=== PATIENT | female | born 1950 | race Caucasian/White ===

== ENCOUNTER 2023-11-12 14:57 | Inpatient (IN) | payer OTHER ==
[2023-11-12 15:42] LABS: Absolute Lymphocytes (CBC) 1.2 K/uL (0.7-4.9); Hematocrit 39.3 % (36.0-45.0); Lymphocytes % 37.1 % (15.3-44.8); MCV 112.4 fL (80-100); MPV 8.2 fL (7.6-11.3); Platelets 185 thou/uL (152-406)
[2023-11-12 15:51] LABS: Barbiturates NEGATIVE (NEGATIVE); Benzodiazepines POSITIVE (NEGATIVE); Cocaine NEGATIVE (NEGATIVE); METHAMPHETAM NEGATIVE (NEGATIVE); Methadone NEGATIVE (NEGATIVE); Opiates NEGATIVE (NEGATIVE); Phencyclidine NEGATIVE (NEGATIVE); THC Cannibis NEGATIVE (NEGATIVE)
[2023-11-12 15:52] LABS: Urine Bacteria <20 /HPF (<20); Urine RBC <5 /HPF (None Seen)
[2023-11-12 15:53] LABS: Specific Gravity 1.008 (1.005-1.030); Urine Bilirubin NEGATIVE (Negative); Urine Blood Negative (Negative); Urine Clarity Clear (Clear); Urine Color Colorless (Yellow); Urine Glucose NEGATIVE (Negative); Urine Protein NEGATIVE (Negative); Urine Urobilinogen Normal (Normal)
[2023-11-12] MEDS ORDERED: ONDANSETRON 4 MG/2 ML VIAL ONE (15:54)
[2023-11-12] MEDS ORDERED: THIAMINE 200 MG/2 ML INJ ONE (15:54)
[2023-11-12] MEDS ORDERED: MULTIVITAMINS 10 ML VIAL (INJ) IV ONE ×2 (15:55→15:56)
[2023-11-12] MEDS ORDERED: NA CHLORIDE 0.9% 2,000 ML ONE (15:55)
[2023-11-12] MEDS ORDERED: FOLIC ACID 5 MG/ML VIAL ONE (15:57)
[2023-11-12 15:59] LABS: ALT/SGPT 35 U/L (13-56); Albumin 3.4 g/dL (3.4-5.0); Alkaline Phosphatase 64 U/L (45-117); BUN Blood Urea Nitrogen 11 mg/dL (7-18); Bicarbonate 22 mEq/L (21-32); Bilirubin Direct 0.1 mg/dL (0-0.2); Bilirubin Indirect, Calculated 0.3 mg/dL (0.2-0.8); Bilirubin Total 0.4 mg/dL (0.2-1.0); Glomerular Filtration Rate 73 ml/min (=/>90); Glucose Level 99 mg/dL (74-106); NT PRO-BNP 189 pg/mL (<125); Sodium Level 141 mEq/L (136-145)
[2023-11-12 16:01] LABS: AST/SGOT 48 U/L (15-37); Magnesium 2.1 mg/dL (1.6-2.4); Potassium 4.2 mEq/L (3.5-5.1)
--- NOTE | 2023-11-12 16:38 | RAD REPORT ---
EXAM DESCRIPTION: Serjio Single View11/12/2023 4:29 pm CLINICAL HISTORY: Cough COMPARISON: none FINDINGS: Mild right basilar opacities Left lung appears clear. Heart is normal size IMPRESSION: Mild right basilar opacity could represent atelectasis or pneumonia
[2023-11-12 17:19] LABS: Platelet Estimate ADEQ; White Blood Cell Scan OK (OK)
[2023-11-12 17:20] LABS: Blood Morphology Comment NOTED (NOT SEEN); Macrocytosis 2+
--- NOTE | 2023-11-12 17:50 | EDPHYS ---
Physician Documentation [facility] Name: Meghann Devine Age: 73 yrs Sex: Female : 1950 Arrival Date: 11/12/2023 Time: 14:57 Bed 4 Private MD: ED Physician Tahir Machado HPI: 11/12 15:40 This 73 yrs old Female presents to ER via EMS with complaints of Overdose. anh 15:40 The patient presents to the emergency department after a known overdose, that was anh intentional. Context: Method: the patient has a confirmed or suspected ingestion, of benzodiazepines, of narcotics, Time: the patient's OD/poisoning occurred at an unknown time, Extent: moderate ingestion, the OD/poisoning occurred at at a parking lot. Associated signs and symptoms: Pertinent positives: unresponsive. Severity of symptoms: At their worst the symptoms were moderate in the emergency department the symptoms are unchanged. It is unknown whether or not the patient has had similar symptoms in the past. Historical: - Allergies: 19:47 Morphine; tl4 - Home Meds: 19:47 None [Active]; tl4 - PMHx: 19:47 Hypertensive disorder; tl4 - PSHx: 19:47 Gastric sleeve; Hip replacement right; Hip replacement left; tl4 - Immunization history:: Adult Immunizations unknown. - Social history:: Smoking status: unknown. ROS: 15:42 Constitutional: Negative for fever, chills, and weight loss, anh 15:42 Unable to obtain ROS due to obtunded state, Exam: 15:42 Constitutional: This is a well developed, well nourished patient who is awake, alert, anh and in no acute distress. Head/Face: Normocephalic, atraumatic. Eyes: Pupils equal round and reactive to light, extra-ocular motions intact. Lids and lashes normal. Conjunctiva and sclera are non-icteric and not injected. Cornea within normal limits. Periorbital areas with no swelling, redness, or edema. ENT: Nares patent. No nasal discharge, no septal abnormalities noted. Tympanic membranes are normal and external auditory canals are clear. Oropharynx with no redness, swelling, or masses, exudates, or evidence of obstruction, uvula midline. Mucous membranes moist. 15:42 Chest/axilla: Inspection: normal, Palpation: is normal, no acute changes, Axilla: are normal, no acute changes, Breasts: are normal, Lymph nodes: lymphadenopathy is not appreciated, 15:42 ECG was reviewed by the Attending Physician. Vital Signs: 15:23 BP 164 / 97; Pulse 80; Resp 16; Temp 98.9; Pulse Ox 97% on R/A; Weight 74.84 kg; Height tl4 5 ft. 7 in. ; 15:30 BP 145 / 90; Pulse 73; Resp 17; Pulse Ox 96% on R/A; tl4 16:00 BP 165 / 91; Pulse 73; Resp 15; Pulse Ox 97% on R/A; tl4 16:30 BP 130 / 87; Pulse 76; Resp 16; Pulse Ox 97% on R/A; tl4 17:00 BP 123 / 78; Pulse 72; Resp 14; Pulse Ox 96% on R/A; tl4 17:30 BP 133 / 82; Pulse 72; Resp 17; Pulse Ox 97% on R/A; tl4 18:00 BP 148 / 95; Pulse 71; Resp 13; Pulse Ox 98% on R/A; tl4 18:30 BP 162 / 93; Pulse 71; Resp 16; Pulse Ox 100% on R/A; tl4 19:00 BP 169 / 98; Pulse 72; Resp 12; Pulse Ox 100% on R/A; tl4 19:30 BP 131 / 92; Pulse 68; Resp 12; Pulse Ox 95% on R/A; tl4 20:30 BP 137 / 92; Pulse 69; Resp 13 S; Pulse Ox 97% on R/A; lg3 21:00 BP 143 / 89; Pulse 71; Resp 13 S; Pulse Ox 97% on R/A; lg3 15:23 Body Mass Index 25.84 (74.84 kg, 170.18 cm) tl4 MDM: 15:04 Patient medically screened. anh 15:46 Differential diagnosis: Ingestion/exposure to benzos, narcos. Data reviewed: vital anh signs, nurses notes, lab test result(s), EKG, radiologic studies, plain films. Consideration of Admission/Observation Patient was admitted/placed on observation. Escalation of care including admission/observation considered. I considered the following discharge prescriptions or medication management in the emergency department Medications were administered in the Emergency Department. See MAR. Independent interpretation of the following test(s) in the Emergency Department EKG: See my EKG interpretation above. Test considered but Not performed: Ultrasound no abd usg. CT: no ct head. Historians other than the Patient: EMS: ems well informed. Care significantly affected by the following chronic conditions: unknown. Counseling: I had a detailed discussion with the patient and/or guardian regarding the historical points, exam findings, and any diagnostic results supporting the discharge/admit diagnosis, the presence of at least one elevated blood pressure reading (>120/80) during this emergency department visit, lab results, the need for further work-up and treatment in the hospital. 11/12 15:05 Order name: Basic Metabolic Panel; Complete Time: 16:33 [facility] 11/12 15:05 Order name: CBC with Diff; Complete Time: 17:47 [facility] 11/12 15:05 Order name: LFT's; Complete Time: 16:33 [facility] 11/12 15:05 Order name: Magnesium; Complete Time: 16:33 [facility] 11/12 15:05 Order name: NT PRO-BNP; Complete Time: 16:33 [facility] 11/12 15:05 Order name: PT-INR; Complete Time: 16:33 [facility] 11/12 15:05 Order name: Troponin HS; Complete Time: 16:33 [facility] 11/12 15:05 Order name: Acetaminophen; Complete Time: 16:33 [facility] 11/12 15:05 Order name: ETOH Level; Complete Time: 16:33 [facility] 11/12 15:05 Order name: Ptt, Activated; Complete Time: 16:33 [facility] 11/12 15:05 Order name: Salicylate; Complete Time: 16:33 [facility] 11/12 15:05 Order name: Urinalysis w/ reflexes; Complete Time: 16:33 [facility] 11/12 15:05 Order name: Urine Drug Screen; Complete Time: 16:33 [facility] 11/12 17:20 Order name: CBC Smear Scan; Complete Time: 17:47 EDMS 11/12 17:47 Order name: Blood Culture Adult (2) 11/12 17:47 Order name: Lactate w/ 2H reflex if indic.; Complete Time: 19:19 [facility] 11/12 17:58 Order name: Tylenol Level 11/12 15:05 Order name: XRAY Chest (1 view); Complete Time: 17:47 [facility] 11/12 19:20 Order name: INCENTIVE SPIROMETRY 11/12 15:05 Order name: EKG; Complete Time: 15:11/12 15:05 Order name: Cardiac monitoring; Complete Time: 15:11/12 15:05 Order name: EKG - Nurse/Tech; Complete Time: 15:11/12 15:05 Order name: IV Saline Lock; Complete Time: 15:11/12 15:05 Order name: Labs collected and sent; Complete Time: 15:11/12 15:05 Order name: O2 Per Protocol; Complete Time: 15:11/12 15:05 Order name: O2 Sat Monitoring; Complete Time: 15:11/12 15:05 Order name: Paris; Complete Time: 15:11/12 15:06 Order name: Misc. Order: hob at 40; Complete Time: :11/12 15:40 Order name: IV Saline Lock - Large Bore; Complete Time: 15:52 [facility] EC:42 Rate is 80 beats/min. Rhythm is regular. QRS [place] is Normal. MS interval is normal. QRS anh interval is normal. QT interval is normal. No Q waves. T waves are Normal. No ST changes noted. Clinical impression: Normal ECG and No evidence of ischemia. Interpreted by me. Reviewed by me. Administered Medications: 16:23 Drug: NS 0.9% IV 1000 ml IV at 1 bolus Per protocol; 1000 mL bolus Route: IV; Rate: 1 tl4 bolus; Site: left antecubital; Delivery: Primary tubing; 18:50 Follow up: Response: No adverse reaction; IV Status: Completed infusion; IV Intake: tl4 1000ml 16:23 Drug: Banana Bag - (Multivitamin IV 1 amp, NS 0.9% IV 1000 ml, Thiamine IV 100 mg, tl4 foLIC Acid IVPB 1 mg) IV at 125 ml/hr once {Note: using IV pump .} Route: IV; Rate: 125 ml/hr; Site: right antecubital; Delivery: Primary tubing; 21:22 Follow up: Response: No adverse reaction; IV Status: Infusion continued upon admission tl4 16:23 Drug: Ondansetron IVP 4 mg IVP once; over 2 minutes Route: IVP; Infused Over: 2 mins; tl4 Site: left antecubital; 19:34 Follow up: Response: No adverse reaction tl4 18:30 Drug: Piperacillin-Tazobactam IVPB 3.375 grams IVPB once over 60 mins; (mix in NS 100 tl4 mL) Route: IVPB; Infused Over: 60 mins; Site: left antecubital; Delivery: Dial-a-flow; 19:34 Follow up: Response: No adverse reaction; IV Status: Completed infusion; IV Intake: tl4 100ml Disposition Summary: 11/12/23 17:50 Hospitalization Ordered Notes: Hospitalization Status: Inpatient Admission anh Provider: Samson Young cha Location: Intensive Care Unit anh Condition: Fair anh Problem: new anh Symptoms: have improved anh Bed/Room Type: Standard [facility] Room Assignment: 3-(11/12/23 19:27) rv1 Diagnosis - Suicide attempt anh - Adverse effect of benzodiazepines anh - Poisoning by benzodiazepines, intentional self-harm anh - Alcohol abuse with intoxication anh - Altered mental status, unspecified anh - Pneumonia due to other specified bacteria - RIGHT LOWER LOBE anh Forms: - Medication Reconciliation Form anh - SBAR form anh - Leadership Thank You Letter anh Signatures: Dispatcher [employer] Tahir Vanessa MD MD cha Villegas, Rebecca rv1 Mario Ozuna RN RN tl4 Corrections: (The following items were deleted from the chart) 19: 17:50 anh rv1 19:52 15:31 Allergies: Unable to obtain; tl4 tl4 19:52 15:31 Home Meds: Unable to obtain; tl4 tl4 19:52 15:31 PMHx: Unable to Obtain; tl4 tl4
--- NOTE | 2023-11-12 17:50 | ER ---
Nurse's Notes [facility] Name: Meghann Devine Age: 73 yrs Sex: Female : 1950 Arrival Date: 11/12/2023 Time: 14:57 Bed 4 Private MD: Diagnosis: Suicide attempt;Adverse effect of benzodiazepines;Poisoning by benzodiazepines, intentional self-harm;Alcohol abuse with intoxication;Altered mental status, unspecified;Pneumonia due to other specified bacteria-RIGHT LOWER LOBE Presentation: 11/12 15:23 Chief complaint: EMS states: EMS reports pt took hydrocodone and alprazolam in attempt tl4 to harm herself. PD has been looking for patient since noon after receiving a call from pt family. Pt reportedly called family member to tell them she was suicidal and taking pills. PD located pt and summoned EMS. EMS arrived to find pt unresponsive except to deep painful stimuli. Pt is currently unresponsive. No other information regarding this event is available. Coronavirus screen: At this time, the client does not indicate any symptoms associated with coronavirus-19. Ebola Screen: No symptoms or risks identified at this time. Initial Sepsis Screen: Does the patient meet any 2 criteria? No. Patient's initial sepsis screen is negative. Does the patient have a suspected source of infection? No. Patient's initial sepsis screen is negative. Risk Assessment: Do you want to hurt yourself or someone else? Unable to obtain Other: Pt reportedly called family members telling them she was suicidal and attempting to end her life. Pt is currently unresponsive. Onset of symptoms was November 12, 2023 at 12:00. 15:23 Method Of Arrival: EMS: [facility] tl4 15:23 Acuity: NELI 2 tl4 Triage Assessment: 15:32 General: Appears unresponsive. Behavior is unresponsive. Pain: Unable to use pain tl4 scale. Patient is unresponsive. EENT: No deficits noted. Neuro: Level of Consciousness is unresponsive, Oriented to none Facial symmetry appears normal, Pupils are pinpoint. Cardiovascular: Capillary refill < 3 seconds JVD is absent Patient's skin is warm and dry. Rhythm is sinus rhythm. Respiratory: Airway is patent Trachea midline Respiratory effort is even, unlabored, Respiratory pattern is regular, Breath sounds are clear bilaterally. GI: No deficits noted. Abdomen is flat, Abd is soft X 4 quads. : No deficits noted. Paris in place Urine is clear. Derm: No deficits noted. Musculoskeletal: No deficits noted. Historical: - Allergies: 19:47 Morphine; tl4 - Home Meds: 19:47 None [Active]; tl4 - PMHx: 19:47 Hypertensive disorder; tl4 - PSHx: 19:47 Gastric sleeve; Hip replacement right; Hip replacement left; tl4 - Immunization history:: Adult Immunizations unknown. - Social history:: Smoking status: unknown. Screenin:22 [facility] ED Fall Risk Assessment (Adult) History of falling in the last 3 months, tl4 including since admission No falls in past 3 months (0 pts) Confusion or Disorientation Yes (5 pts) Intoxicated or Sedated Yes (3 pts) Impaired Gait No (0 pts) Mobility Assist Device Used No (0 pt) Altered Elimination Yes (1 pt) Score/Fall Risk Level 3 or more points = High Risk Oriented to surroundings, Maintained a safe environment, Educated pt \\T\\ family on fall prevention, incl call for assistance when getting out of bed, Assessed \\T\\ reinforced patient's understanding of fall precautions, Provided non-skid footwear, Hourly rounding (assess needs \\T\\ fall precautionary measures) done, Used ambulatory aids as needed (educated on \\T\\ assisted with), Used gait belt as appropriate. Abuse screen: Denies threats or abuse. Denies injuries from another. Nutritional screening: No deficits noted. Tuberculosis screening: No symptoms or risk factors identified. Assessment: 15:25 Reassessment: Pt presents with hydrocodone-apap 5-325 bottle prescribed to Juan Miguel Barnhart tl4 with 5 white pills IP 115. Farmapram bottle 2.0mg/90 tablets with 51 tablets. 16:08 Reassessment: No changes from previously documented assessment. Patient and/or family tl4 updated on plan of care and expected duration. Pain level reassessed. pt remains unresponsive. 16:51 Reassessment: No changes from previously documented assessment. Patient and/or family tl4 updated on plan of care and expected duration. Pain level reassessed. Pt remains unresponsive. Grandson and friend at bedside. 17:44 Reassessment: No changes from previously documented assessment. Patient and/or family tl4 updated on plan of care and expected duration. Pain level reassessed. Pt more responsive than previously. Pt is able to state her name, but not oriented to place, time, event. When asked if she has any medical complaints, pt answers with "I'm cold". 18:48 Reassessment: No changes from previously documented assessment. Patient and/or family tl4 updated on plan of care and expected duration. Pain level reassessed. Pt states "I'm cold", offers no other complaints. Pt given additional warm blanket. 19:36 Reassessment: No changes from previously documented assessment. Patient and/or family tl4 updated on plan of care and expected duration. Pain level reassessed. 19:37 Reassessment: Attempt to give report. RN in ICU states she is unable to take patient tl4 since she can only have 2 patients. 19:52 Reassessment: Spoke with daughter, Jen, updated her on pt status, answered questions. tl4 Daughter provided pt allergies, pmh, and meds. Vital Signs: 15:23 BP 164 / 97; Pulse 80; Resp 16; Temp 98.9; Pulse Ox 97% on R/A; Weight 74.84 kg; Height tl4 5 ft. 7 in. ; 15:30 BP 145 / 90; Pulse 73; Resp 17; Pulse Ox 96% on R/A; tl4 16:00 BP 165 / 91; Pulse 73; Resp 15; Pulse Ox 97% on R/A; tl4 16:30 BP 130 / 87; Pulse 76; Resp 16; Pulse Ox 97% on R/A; tl4 17:00 BP 123 / 78; Pulse 72; Resp 14; Pulse Ox 96% on R/A; tl4 17:30 BP 133 / 82; Pulse 72; Resp 17; Pulse Ox 97% on R/A; tl4 18:00 BP 148 / 95; Pulse 71; Resp 13; Pulse Ox 98% on R/A; tl4 18:30 BP 162 / 93; Pulse 71; Resp 16; Pulse Ox 100% on R/A; tl4 19:00 BP 169 / 98; Pulse 72; Resp 12; Pulse Ox 100% on R/A; tl4 19:30 BP 131 / 92; Pulse 68; Resp 12; Pulse Ox 95% on R/A; tl4 20:30 BP 137 / 92; Pulse 69; Resp 13 S; Pulse Ox 97% on R/A; lg3 21:00 BP 143 / 89; Pulse 71; Resp 13 S; Pulse Ox 97% on R/A; lg3 15:23 Body Mass Index 25.84 (74.84 kg, 170.18 cm) tl4 ED Course: 15:04 Patient arrived in ED. ds4 15:04 Tahir Machado MD is Attending Physician. anh 15:18 Mario Ozuna, KRAIG is Primary Nurse. tl4 15:19 Acetaminophen Sent. tl4 15:19 ETOH Level Sent. tl4 15:19 Ptt, Activated Sent. tl4 15:19 Basic Metabolic Panel Sent. tl4 15:19 CBC with Diff Sent. tl4 15:19 LFT's Sent. tl4 15:19 Magnesium Sent. tl4 15:19 NT PRO-BNP Sent. tl4 15:19 PT-INR Sent. tl4 15:19 Troponin HS Sent. tl4 15:21 [place] cath inserted, using sterile technique, 14 Fr., by ca, balloon inflated, to tl4 gravity drainage, urine specimen collected. 15:21 Maintain EMS IV. Dressing intact. Good blood return noted. Site clean \\T\\ dry. Gauge \\T\\ tl 4 site: 20g Right AC. 15:23 Urine Drug Screen Sent. tl4 15:23 Urinalysis w/ reflexes Sent. tl4 15:23 Salicylate Sent. tl4 15:31 Triage completed. tl4 15:31 Inserted saline lock: 18 gauge in left antecubital area, using aseptic technique. hb 15:34 Arm band placed on right wrist. EKG done per protocol. Performed by ED Staff. Shown to tl4 ED physician. Urine obtained. Labs ordered per protocol. Drawn by ED staff. 15:35 No provider procedures requiring assistance completed. tl4 15:36 Client placed on continuous cardiac and pulse oximetry monitoring. NIBP monitoring tl4 applied. monitor tech on. Door closed. Lights dimmed. Moved to private room. Warm blanket given. Head of bed 40 degrees. 16:31 XRAY Chest (1 view) In Process Unspecified. EDMS 17:22 Patient has correct armband on for positive identification. Placed in gown. Bed in low tl4 position. Call light in reach. Side rails up X2. Adult w/ patient. Provided Education on: ed process. 17:45 Warm blanket given. tl4 17:49 Samson Young MD is Hospitalizing Provider. anh 18:40 Blood Culture Adult (2) Sent. tl4 18:40 Tylenol Level Sent. tl4 18:40 Lactate w/ 2H reflex if indic. Sent. tl4 18:49 Warm blanket given. tl4 20:38 Patient admitted, IV remains in place. tl4 Administered Medications: 16:23 Drug: NS 0.9% IV 1000 ml IV at 1 bolus Per protocol; 1000 mL bolus Route: IV; Rate: 1 tl4 bolus; Site: left antecubital; Delivery: Primary tubing; 18:50 Follow up: Response: No adverse reaction; IV Status: Completed infusion; IV Intake: tl4 1000ml 16:23 Drug: Banana Bag - (Multivitamin IV 1 amp, NS 0.9% IV 1000 ml, Thiamine IV 100 mg, tl4 foLIC Acid IVPB 1 mg) IV at 125 ml/hr once {Note: using IV pump .} Route: IV; Rate: 125 ml/hr; Site: right antecubital; Delivery: Primary tubing; 21:22 Follow up: Response: No adverse reaction; IV Status: Infusion continued upon admission tl4 16:23 Drug: Ondansetron IVP 4 mg IVP once; over 2 minutes Route: IVP; Infused Over: 2 mins; tl4 Site: left antecubital; 19:34 Follow up: Response: No adverse reaction tl4 18:30 Drug: Piperacillin-Tazobactam IVPB 3.375 grams IVPB once over 60 mins; (mix in NS 100 tl4 mL) Route: IVPB; Infused Over: 60 mins; Site: left antecubital; Delivery: Dial-a-flow; 19:34 Follow up: Response: No adverse reaction; IV Status: Completed infusion; IV Intake: tl4 100ml Medication: 17:23 VIS not applicable for this client. tl4 Intake: 18:50 IV: 1000ml; Total: 1000ml. tl4 19:34 IV: 100ml; Total: 1100ml. tl4 Output: 16:00 Urine: 660ml (Paris); Total: 660ml. tl4 18:05 Urine: 460ml ([place]); Total: 1120ml. tl4 Outcome: 17:50 Decision to Hospitalize by Provider. anh 21:10 Admitted to ICU accompanied by nurse, via stretcher, room 4, on monitor, with chart, tl4 Report called to KRAIG Guerra 21:10 Condition: stable 21:10 Instructed on the need for admit, 21:16 Patient left the ED. lg3 Signatures: Dispatcher [employer] EDTahir Singletary MD MD cha Swanson, Donovan ds4 Gabrielle Guzmna, RN Kae Ramey RN RN lg3 Mario Ozuna RN RN tl4 Corrections: (The following items were deleted from the chart) 19: 15:31 Allergies: Unable to obtain; tl4 tl4 : 15:31 Home Meds: Unable to obtain; tl4 tl4 : 15:31 PMHx: Unable to Obtain; tl4 tl4
[2023-11-12] MEDS ORDERED: NA CHLORIDE 0.9% 100 ML ONE (18:06)
[2023-11-12] MEDS ORDERED: PIPERACIL/TAZO 3.375 GM VIAL IV ONE (18:06)
[2023-11-12] MEDS ORDERED: ONDANSETRON 4 MG/2 ML VIAL IV PRN (18:46)
[2023-11-12] MEDS ORDERED: SODIUM CHLORIDE 0.9% 10ML INJ IV PRN (18:50)
--- NOTE | 2023-11-12 18:52 | P.HP ---
Certification for Inpatient Patient admitted to: Inpatient With expected LOS: >2 Midnights Practitioner: I am a practitioner with admitting privileges, knowledge of patient current condition, hospital course, and medical plan of care. Services: Services provided to patient in accordance with Admission requirements found in Title 42 Section 412.3 of the Code of Federal Regulations Patient History Date of Service: 11/12/23 Reason for admission: Overdose / Suicidal Ideation History of Present Illness: 71-year-old female with unknown past medical history who was brought to the ER with possible suicidal attempt/overdose . At the time of interview patient is drowsy hence most of the history is obtained from chart review and also talking to the ER physician. Patient was found unresponsive in the parking lot after being telling family/friends that she took medications after having a fight with partner. Patient was brought to ER and has been drowsy and barely arousable. Maintaining airway. Patient was also found to be positive for alcohol and benzodiazepine. Apparently patient took Xanax does not know how many tablets. Patient was assessed in the ER and was admitted to the ICU for further management . Home medications list reviewed: No (Patient cannot provide) - Past Medical/Surgical History Past Medical History: Unable to obtain Past Surgical History: Unable to obtain - Family History Family History: Reviewed- Non-Contributory - Social History Smoking Status: Unknown if ever smoked Review of Systems is unable to be obtained Physical Examination - Vital Signs Temperature: 98.2 F Blood Pressure: 162/96 Pulse: 78 Respirations: 18 Pulse Ox (%): 96 - Physical Exam General: In no apparent distress, Unresponsive HEENT: Atraumatic, Normocephalic Neck: Supple Respiratory: Clear to auscultation bilaterally, Normal air movement Cardiovascular: Normal pulses, Regular rate/rhythm, Normal S1 S2, No rubs Capillary refill: <2 Seconds Gastrointestinal: Soft and benign, W/out hepatosplenomegaly, No ascites Musculoskeletal: No clubbing, No swelling Integumentary: No rashes Neurological: Other (Drowsy , mumbling words , states that she is cold ), Abnormal speech Lymphatics: No axilla or inguinal lymphadenopathy - Studies Laboratory Data (last 24 hrs) 11/12/23 11/12/23 11/12/23 15:16 15:16 15:16 WBC 3.20 L Hgb 13.5 Hct 39.3 Plt Count 185 PT 11.0 INR 1.00 APTT 24.5 Sodium 141 Potassium 4.2 BUN 11 Creatinine 0.85 Glucose 99 Magnesium 2.1 Total Bilirubin 0.4 AST 48 H ALT 35 Alkaline Phosphatase 64 Assessment and Plan - Problems (Diagnosis) (1) Acute metabolic encephalopathy Current Visit: Yes Status: Acute Plan: Patient is drowsy Monitor neuro vital signs Monitor closely in ICU Possibly toxic due to overdosage Will get a CT of the head if not better clinically in a.m. (2) Suicidal ideation Current Visit: Yes Status: Acute Plan: Patient had taken multiple medications including Xanax and alcohol Definitely need psych eval once more awake alert Patient will need inpatient psych transfer (3) Alcohol abuse Current Visit: Yes Status: Acute Plan: Alcohol level monitored Will get banana bag Thiamine Watch closely for withdrawals CIWA protocol (4) Benzodiazepine overdose Current Visit: Yes Status: Acute Plan: UDS positive for benzodiazepines Monitor closely under telemetry Maintaining airway at this time Continuous pulse oximetry Watch closely in ICU (5) Aspiration pneumonia Current Visit: Yes Status: Acute Plan: X-ray findings noted Right basilar possibly infiltrate Start on antibiotic Possibly due to aspiration Will get a repeat x-ray chest in a.m. Discharge Plan: Psychiatry Plan to discharge in: Greater than 2 days - Advance Directives Does patient have a Living Will: No Does patient have a Durable POA for Healthcare: No Time Spent Managing Pts Care (In Minutes): 54
[2023-11-12] MEDS: PANTOPRAZOLE 40 MG INJ IVP SCH (19:50)
[2023-11-12] MEDS ORDERED: PANTOPRAZOLE 40 MG INJ ONE (20:43)
[2023-11-12] MEDS ORDERED: NA CHLORIDE 0.9% 1,000 ML ONE (20:43)
[2023-11-12] MEDS: NA CHLORIDE 0.9% 1,000 ML IV SCH (21:21)
[2023-11-12 22:14] VITALS: BMI 25.9
[2023-11-13] MEDS ORDERED: AZITHROMYCIN 500 MG INJ IVPB ONE (08:47)
[2023-11-13] MEDS ORDERED: NA CHLORIDE 0.9% 250 ML ONE (08:47)
[2023-11-13] MEDS: CEFTRIAXONE 1,000 MG in NA CHLORIDE 0.9% 50 ML IVPB SCH (08:54)
[2023-11-13] MEDS: ENOXAPARIN 40 MG/0.4 ML SQ SCH (08:54)
[2023-11-13] MEDS: AZITHROMYCIN IV 500 MG in NA CHLORIDE 0.9% 250 ML IVPB SCH (08:54)
[2023-11-13] MEDS ORDERED: HYDRALAZINE HCL 20 MG/ML VIAL ONE (12:26)
[2023-11-13] MEDS: HYDRALAZINE HCL 20 MG/ML VIAL IV PRN (12:30)
--- NOTE | 2023-11-13 14:30 | EKG ---
Test Date: 2023-11-12 Test Time: 15:00:15 [employer]: ABIMAEL MEASUREMENT RESULTS: Intervals: Rate: 80 MA: 192 QRSD: 82 QT: 408 QTc: 470 [place]: P: 63 MA: 192 QRS: -5 T: 22 INTERPRETIVE STATEMENTS: Normal sinus rhythm Normal ECG No previous ECG available for comparison Electronically Signed On 11-13-23 14:26:31 DELIVERER MERCHANDISE by Emiliano Mckeon
--- NOTE | 2023-11-13 14:45 | P.PN ---
Subjective Date of Service: 11/13/23 Chief Complaint: Overdose / Suicidal Ideation Patient is awake and alert, she is sad but denies any further suicidal thoughts. She reports this is her first attempt. No prior history of suicide attempts. No prior anxiety and depression diagnosis. Patient denies anhedonia, denies guilt. Physical Examination - Vital Signs Temperature: 98.2 F Blood Pressure: 125/82 Pulse: 85 Respirations: 18 Pulse Ox (%): 98 - Studies Laboratory Data (last 24 hrs) 11/12/23 11/12/23 11/12/23 15:16 15:16 15:16 WBC 3.20 L Hgb 13.5 Hct 39.3 Plt Count 185 PT 11.0 INR 1.00 APTT 24.5 Sodium 141 Potassium 4.2 BUN 11 Creatinine 0.85 Glucose 99 Magnesium 2.1 Total Bilirubin 0.4 AST 48 H ALT 35 Alkaline Phosphatase 64 Assessment And Plan - Plan Physical examination General: Alert and oriented x3, NAD, HEENT: Conjunctiva not pale, anicteric sclera Neck: Supple, no elevated JVD Heart: Heart sounds 1 and 2 normal, regular rhythm, normal rate, no pedal edema Lungs: Clear to auscultation bilaterally, adequate breath sounds bilaterally, no rhonchi or crackles. Abdomen: Soft, nondistended, nontender, normal bowel sounds. Extremities: No tenderness, no deformity Skin: Normal skin turgor, no rash, no nodules or ulcers. Neuro: No focal motor deficit. Normal speech. Psychiatry:feels said, no agitation. Diagnosis Acute metabolic encephalopathy Suicidal ideation. Benzodiazepine overdose Alcohol intoxication AMS secondary to drug overdose and alcohol intoxication. AMS resolved. Continue supportive measures with IV hydration. Psychiatry consult IV thiamine and folic acid Patient denies any history of alcohol withdrawal. Aspiration pneumonia Empiric antibiotics for possible aspiration pneumonia. Patient is stable on room air. DVT prophylaxis: Lovenox
[2023-11-13] MEDS ORDERED: NA CHLORIDE 0.9% 1,000 ML ONE (16:22)
[2023-11-13] MEDS ORDERED: ACETAMINOPHEN 500 MG TAB ONE (21:06)
[2023-11-13] MEDS: ACETAMINOPHEN 500 MG TAB PO PRN (21:08)
[2023-11-14 05:10] LABS: Potassium 3.5 mEq/L (3.5-5.1)
[2023-11-14 05:16] LABS: Absolute Lymphocytes (CBC) 1.2 K/uL (0.7-4.9); Hematocrit 39.7 % (36.0-45.0); Lymphocytes % 33.7 % (15.3-44.8); Platelets 173 thou/uL (152-406); RBC Red Blood Cell Count 3.53 M/uL (3.86-4.86)
[2023-11-14 05:25] LABS: MCV 112.2 fL (80-100)
[2023-11-14 08:24] VITALS: O2SAT 98
[2023-11-14] MEDS: POTASSIUM 25 MEQ EFFERV TAB PO ONE (08:39)
[2023-11-14] MEDS: LOSARTAN POTASSIUM 50 MG TABLET PO SCH (08:39)
[2023-11-14] MEDS: hydroCHLOROthiazide 12.5 MG CAP PO SCH (08:39)
--- NOTE | 2023-11-14 08:49 | P.DS ---
Admission Date: 11/12/23 Discharge Date: 11/14/23 Disposition: ROUTINE DISCHARGE Discharge Condition: GOOD Reason for Admission: Overdose / Suicidal Ideation Consultations: Psychology - Dr. Rutherford Brief History of Present Illness: 71yo F, PMH: unknown past medical history who was brought to the ER with possible suicidal attempt/overdose . At the time of interview patient is drowsy hence most of the history is obtained from chart review and also talking to the ER physician. Patient was found unresponsive in the parking lot after being telling family/friends that she took medications after having a fight with partner. Patient was brought to ER and has been drowsy and barely arousable. Maintaining airway. Patient was also found to be positive for alcohol and benzodiazepine. Apparently patient took Xanax does not know how many tablets. Patient was assessed in the ER and was admitted to the ICU for further management Hospital Course: Problem List: Acute metabolic encephalopathy secondary to medication side effect Benzodiazepine overdose Alcohol intoxication Right basilar opacity, atelectasis vs aspiration pneumonia Patient presented to the ED after being found unresponsive and concer for possible possible suicidal attempt / medication overdose. Patient reportedly took multiple medications including an unknown amount of xanax, drank alcohol, and was found unresponsive by family. Tox screen was positive for benzos / serum alcohol 180. Patient was admitted into the ICU for close monitoring with [facility] protocol and had improvement. Psych was consulted and she was evaluated by Dr. Rutherford. She reported no suicidal ideation. She has had multiple stressors in her life and took medication and drank some wine to help her relax, inadvertently leading to this episode. She reports good family support. Dr. Rutherford recommended starting sertraline and trazodone, and to have close follow up with him in ~1 week. Chest x-ray on admission noted a mild right basilar opacity, concerning for atelectasis or possible mild aspiration pneumonia. Patient briefly received ~1 day of IV azithromycin / rocephin empirically while hospitalized and is to complete 5 day course of PO augmentin on discharge. During her hospitalization she was without fever or leukocytosis. She did not report any shortness of breath or cough. Continue home medications as previously prescribed. New Medications: Sertraline 25 mg at dinner Trazodone 25 mg at bedtime Augmentin twice daily x5 days Follow up: PCP within 3-[address] Rutherford in ~1 week Refrain from drinking alcohol Physical Exam: GEN: Alert, oriented, NAD HEENT: Normal conjunctiva, sclera anicteric CV: Regular rate and rhythm, no edema Pulm: Nonlabored respirations on room air, clear bilaterally ABD: Soft, nontender, nondistended Neuro: Normal speech, normal affect Vital Signs/Physical Exam: Temp Pulse Resp BP Pulse Ox 97.9 F 79 19 183/98 H 97 11/14/23 08:00 11/14/23 08:39 11/14/23 08:00 11/14/23 08:39 11/14/23 08:00 Laboratory Data at Discharge: WBC 3.50 thou/uL (4.3-10.9) L 11/14/23 04:36 Hgb 13.6 g/dL (12.0-15.0) 11/14/23 04:36 Hct 39.7 % (36.0-45.0) 11/14/23 04:36 Plt Count 173 thou/uL (152-406) 11/14/23 04:36 PT 11.0 SECONDS (9.5-12.5) 11/12/23 15:16 INR 1.00 11/12/23 15:16 APTT 24.5 SECONDS (24.3-36.9) 11/12/23 15:16 Sodium 139 mEq/L (136-145) 11/14/23 04:36 Potassium 3.5 mEq/L (3.5-5.1) 11/14/23 04:36 BUN 11 mg/dL (7-18) 11/14/23 04:36 Creatinine 0.85 mg/dL (0.55-1.02) 11/14/23 04:36 Glucose 92 mg/dL (74-106) 11/14/23 04:36 Magnesium 2.1 mg/dL (1.6-2.4) 11/12/23 15:16 Total Bilirubin 0.4 mg/dL (0.2-1.0) 11/12/23 15:16 AST 48 U/L (15-37) H 11/12/23 15:16 ALT 35 U/L (13-56) 11/12/23 15:16 Alkaline Phosphatase 64 U/L (45-117) 11/12/23 15:16 Home Medications: Amox/Clavulanate [Augmentin 875-125 Tab] 1 tab PO BID 5 Days #10 tab 11/14/23 Aspirin Chewable [Aspirin Chewable*] 81 mg PO DAILY 11/14/23 Atorvastatin Calcium [Lipitor] 40 mg PO DAILY 11/14/23 Losartan/Hydrochlorothiazide [Hyzaar 100-12.5 Tablet] 1 tab PO DAILY 11/14/23 Sertraline HCl 0.5 tab PO DAILY AT SUPPER 60 Days #30 tab 11/14/23 Trazodone HCl 0.5 tab PO BEDTIME 60 Days #30 tab 11/14/23 New Medications: Amox/Clavulanate [Augmentin 875-125 Tab] 1 tab PO BID 5 Days #10 tab Sertraline HCl 0.5 tab PO DAILY AT SUPPER 60 Days #30 tab Trazodone HCl 0.5 tab PO BEDTIME 60 Days #30 tab Physician Discharge Instructions: Patient presented to the ED after being found unresponsive and concern for possible possible suicidal attempt / medication overdose. Patient reportedly took multiple medications including an unknown amount of xanax, drank alcohol, and was found unresponsive by family. Tox screen was positive for benzos / serum alcohol 180. Patient was admitted into the ICU for close monitoring with [facility] protocol and had improvement. Psych was consulted and she was evaluated by Dr. Rutherford. She reported no suicidal ideation. She has had multiple stressors in her life and took medication and drank some wine to help her relax, inadvertently leading to this episode. She reports good family support. Dr. Rutherford recommended starting sertraline and trazodone, and to have close follow up with him in ~1 week. Chest x-ray on admission noted a mild right basilar opacity, concerning for atelectasis or possible mild aspiration pneumonia. Patient briefly received ~1 day of IV azithromycin / rocephin empirically while hospitalized and is to complete 5 day course of PO augmentin on discharge. During her hospitalization she was without fever or leukocytosis. She did not report any shortness of breath or cough. Continue home medications as previously prescribed. New Medications: Sertraline 25 mg at dinner Trazodone 25 mg at bedtime Augmentin twice daily x5 days Follow up: PCP within 3-[address] Rutherford in ~1 week Refrain from drinking alcohol Followup: Papo Rutherford [ACTIVE - CAN ADMIT] - 1 Week Magdalena Mckeon DO [Primary Care Provider] - Time spent managing pt's care (in minutes): 45
[2023-11-14 08:57] VITALS: TEMP 97.9
[2023-11-14 10:57] VITALS: BP 172/95
[2023-11-14] MEDS ORDERED: SERTRALINE HCL 50 MG TAB PO SCH (17:00)
[2023-11-14] MEDS ORDERED: TRAZODONE 50 MG TABLET PO SCH (21:00)
== END 2023-11-14 10:30 | disposition home or self-care (01) | DRG 917 ==
LOC: EDBD 14:57 → ER 14:57 → ERHOLD 18:46 → 3RD-ICU 19:59
PROVIDERS: ADMIT Family Medicine; ATTEND Hospitalist
DX: T42.4X2A Poisoning by benzodiazepines, intentional self-harm, initial encounter (principal); G93.41 Metabolic encephalopathy; J69.0 Pneumonitis due to inhalation of food and vomit; R45.851 Suicidal ideations; F10.129 Alcohol abuse with intoxication, unspecified; I10 Essential (primary) hypertension; Z88.5 Allergy status to narcotic agent; Z98.84 Bariatric surgery status; Z96.643 Presence of artificial hip joint, bilateral; Y90.6 Blood alcohol level of 120-199 mg/100 ml
CPT/HCPCS: 36415; 51702; 71045; 80048; 80076; 80143; 80179; 80307; 81001; 82077; 83605; 83735; 83880; 84484; 85025; 85610; 85730; 87040; 93005; 99285; C9113; J0360; J0696; J1650; J2405; J2543; J3411; J7030; J7050

== ENCOUNTER 2025-04-26 11:19 | Emergency (ER) | payer OTHER ==
--- OUTSIDE RECORDS SUMMARY | 2025-04-26 11:24 | XMS REPORT | Continuity of Care Document ---
Author Name Unknown Address [address] [facility] [place] [address] [facility] Address [address] 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 Phone Angelica Johnson MD, [facility] Primary Care Physici an Luciana Hernadez MD Attending Clinician [phone] NERIS MORELAND Attending Clinician Unavailable Jw WOLFF, [facility] Attending Clinician [phone] LUCIANA EDWARDS Attending Clinician Lucien Bae MD, [facility] Attending Clinician [phone] Lab, [facility] I Attending Clinician UnavailAlice Hickey Attending Clinician [phone] ALICE SIGALA Attending Clinician Unavailabl e Doctor Unassigned, [place] Attending Clinician U LEA Landeros LCSW Attending Clinician VAHE Mathur M.D. Attending Clinician Unavail able LUCIANA EDWARDS Admitting Clinician Lucien brantley Payers Payer Name Policy Type Policy Number Effective Date Expirati on Date Source MEDICARE PART A AND B [id number] 2016 00:00:00 MEDICARE PART A \T\ B [id number] 2016 00:00:00 CONTINENTAL BENEFITS [id number] 2018 00:00:00 Problems Condition Name Condition Details Condition Category Status Onset Date Resolution Date Last Treatment Date Treating Clinician Comments Source Displaced fracture of greater tuberosity of right humerus, initial encounter for closed fracture Displaced fracture of greater tuberosity of right humerus, initial encounter for closed fracture Disease Active 03-06 00:00: 00 [facility] Z47.1, T84.090A, T84.84XA, M25.551, 2713 Z47.1, T84.090A, T84.84XA, M25.551, 2713 Active 10/22/2019 [facility] [place][note 2] Diagnosis Active 2- 00:00: 00 2019-10-29 07:52:00 Memoria jason Vidal R06.02 - SHORTNESS OF BREATH R06.02 - SHORTNESS OF BREATH Active 10/09/2019 BLAKE Vidal Diagnosis Active 10-09 00:01: 00 2019-10-30 12:10:00 Memoria jason Vidal Z47.1,T84. 090A,T84.8 4XA,M25.55 1 Z47.1,T84. 090A,T84.8 4XA,M25.55 1 Active 07/10/2019 [facility] [place][note 2] Diagnosis Active 2018-09 0- 00:00: 00 2019-07-19 07:45:00 Memrosalind Vidal Closed left hip fracture, with routine healing, subsequent encounter Closed left hip fracture, with routine healing, subsequent encounter Disease Active 05-09 00:00: 00 [facility] FALL/INTOX ICATED FALL/INTOX ICATED Active 04/05/2017 [facility] Diagnosis Active 04-05 00:00: 00 2017-04-05 23:22:00 Memrosalind Vidal History of depression History of depression [facility] History of hyperlipid emia History of hyperlipid emia Problem Resolve d [facility] History of hypertensi on History of hypertensi on Problem Resolve d [facility] Depression Depression Problem Active [facility] Alcohol abuse Alcohol abuse Problem Active [facility] Major depressive disorder, recurrent episode, moderate with atypical features Major depressive disorder, recurrent episode, moderate with atypical features Problem Active [facility] Hyperlipid emia (disorder) Hyperlipid emia (disorder) Active Problem 10/31/2019 [facility] [place][note 2] Problem Active 2019-10-31 23:23:19 Saida Vidal Hypertensi ve disorder, systemic arterial (disorder) Hypertensi ve disorder, systemic arterial (disorder) Active Problem 10/31/2019 [facility] [place][note 2] Problem Active 2019-10-31 23:23:19 Saida Vidal 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 10/31/2019 right hip [facility] [place][note 2] Problem Active 2019-10-31 23:23:19 Saida Vidal ILLNESS, UNSPECIFIE D ILLNESS, UNSPECIFIE D Active [facility] [place][note 2] Diagnosis Active 2019-10-29 07:52:00 Saida Vidal Gallbladde r calculus (disorder) Gallbladde r calculus (disorder) Resolved Problem 10/31/2019 [facility] [place][note 2] Problem Resolve d 2019-10-31 23:23:19 Saida Vidal 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 Resolved Problem 10/31/2019 [facility] [place][note 2] Problem Resolve d 2019-10-31 23:23:19 Saida Vidal History of Past Illness Condition Name Condition Details Condition Category Status Onset Date Resolution Date Last Treatment Date Treating Clinician Comments Source Displaced fracture of greater trochanter of unspecifie d femur, initial encounter for closed fracture Displaced fracture of greater trochanter of unspecifie d femur, initial encounter for closed fracture 04/06/2017 04/09/2017 [facility] Problem - 05:00: 00 2017-04-09 05:11:59 2017-04-09 05:11:59 Saida Vidal Allergies, Adverse Reactions, Alerts Allergy Name Allergy Type Status Severity Reaction(s) Onset Date Inactive Date Treating Clinician Comments Source Lisinopr il Allergy to substanc e Active Cough 11-13 00:00: 00 [facility] ANTIHIST IMINE DRUG Active Other-Cmnt 01-31 00:00: 00 [facility] Antihist imine Propensi ty to adverse reaction s Active Other - See comments 2016-0 5-16 00:00: 00 Makes her sleep [facility] Family History Family Member Diagnosis Comments Start Date Stop Date Sourc e Unknown Family Member Family history of sudden Other [facility] Child Family history of Hi gh cholesterol [facility] Child Family history of hypertension [facility] Sibling Family history of Hi gh cholesterol [facility] Sibling Family history of bi rth defect [facility] Sibling Family history of Alcohol abuse [facility] Social History Social Habit Start Date Stop Date Quantity Comments Source Gender identity 2023-12-09 01:54:15 Identifies as female gender (finding) [facility] History of tobacco use Current smoker [facility] ASSERTION Possible [facility] Sexual orientation [facility] Alcoholic beverage intake 2025-04-14 00:00:00 2025-04-14 00:00:00 .29 /d [facility] Tobacco use and exposure 2024-04-11 00:00:00 2024-04-11 00:00:00 Smokeless tobacco non-user [facility] History of Social function 2024-03-07 00:00:00 2024-03-07 00:00:00 [facility] Sex 2023-12-09 01:54:15 2023-12-09 01:54:15 Female (finding) [facility] Social History 2019-07-16 15:37:56 2019-07-16 15:37:56 [facility] Alcohol intake 2017-06-12 00:00:00 2017-06-12 00:00:00 [facility] Sex assigned at 1950 00:00:00 1950 00:00:00 [facility] Smoking Status Start Date Stop Date [facility] Current some day smoker 2017-06-12 00:00:00 [facility] Social History [facility] Medications Ordered Medication Name Filled Medication Name Start Date Stop Date Current Medication? Ordering Clinician Indication Dosage Frequency Signature (SIG) Comments Components Source traMADol (Ultram) 50 MG tablet 03-06 00:00: 00 Yes [id number] 50mg Take 1 tablet (50 mg total) by mouth every 8 (eight) hours if needed for severe pain. [facility] apixaban (Eliquis) 5 MG tablet 2023-09 0-31 10:06: 47 Yes 5mg Q.5D Take 5 mg by mouth in the morning and 5 mg in the evening. [facility] sertraline (Zoloft) 50 MG tablet 04-11 11:32: 03 Yes 50mg QD Take 50 mg by mouth 1 (one) time each day. [facility] atorvastati n (Lipitor) 80 MG tablet 04-11 11:32: 03 Yes 80mg QD Take 80 mg by mouth 1 (one) time each day. [facility] losartan (Cozaar) 100 MG tablet 04-11 11:32: 03 Yes 100mg QD Take 100 mg by mouth 1 (one) time each day. [facility] carvedilol (Coreg) 6.25 MG tablet 03-09 00:00: 00 Yes 6.25mg Q.5D Take 6.25 mg by mouth every 12 (twelve) hours. [facility] hydroCHLORO thiazide (HYDRODiuri l) 25 MG tablet 03-08 00:00: 00 Yes 25mg QD Take 25 mg by mouth 1 (one) time each day. [facility] aspirin 81 MG EC tablet 03-08 00:00: 00 07-18 00:00 :00 No 81mg Q.5D Take 81 mg by mouth every 12 (twelve) hours. [facility] traZODone (Desyrel) 50 MG tablet 11-14 00:00: 00 Yes .5{tbl} Take 0.5 tablets by mouth every night. [facility] allopurinol (Zyloprim) 100 MG tablet 2022-09 00:00: 00 Yes 100mg QD Take 100 mg by mouth 1 (one) time each day. [facility] Ondansetron 4 MG Disintegrat ing Tablet 10-29 15:39: 00 Yes 4 mg = 1 tab, PO, Q8H, PRN Nausea, 0 Refill(s) Memoria jason Vidal Acetaminoph en 325 MG / Hydrocodone Bitartrate 10 MG Oral Tablet 10-29 15:26: 00 Yes 1 tab, PO, Q4H, PRN Pain Score 4-6, 0 Refill(s) Memrosalind Vidal Aspirin 81 MG Enteric Coated Tablet 10-29 15:26: 00 Yes 81 mg = 1 tab, PO, Q12H, 0 Refill(s) Memoria l [place] gabapentin 300 MG Oral Capsule 10-29 15:26: 00 Yes 300 mg = 1 cap, PO, Bedtime, 0 Refill(s) Saida Vidal Mupirocin 10-29 15:26: 00 Yes 1 appl, NASAL, Q12H, in each nostril, 0 Refill(s) Saida Vidal meloxicam 15 MG Oral Tablet [Mobic] 10-29 15:26: 00 Yes 15 mg = 1 tab, PO, Daily, # 30 tab, 0 Refill(s), given to patient Saida Vidal Aspirin 81 MG Enteric Coated Tablet 10-29 15:00: 00 No 81 mg, 1 tab, Route: PO, Drug form: ECTAB, Q12H, Dosing Weight 57.727, kg, Start date: 10/29/19 9:00:00 POLICY DIRECTOR, Duration: 30 day, Stop date: 11/27/19 21:00:00 CDT, 0 Saida Vidal Mupirocin 10-29 03:00: 00 No 1 appl, Route: NASAL, Q12H, Drug form: OINT, Start date: 10/28/19 21:00:00 POLICY DIRECTOR, Duration: 30 day, Stop date: 11/27/19 9:00:00 CDT, 0 Saida Vidal gabapentin 300 MG Oral Capsule 10-29 03:00: 00 No Notes: (Same as: Neurontin) Saida Vidal Saline Flush 0.9% 10-29 03:00: 00 No 10 ml, Route: IVP, Drug Form: INJ, Dosing Weight 57.727, kg, Q12H, Start date: 10/28/19 21:00:00 POLICY DIRECTOR, Duration: 30 day, Stop date: 11/27/19 9:00:00 CDT Saida Vidal Lipitor 10-29 03:00: 00 No Notes: (Same As: Lipitor) Saida gomez Young ondansetron ODT (Zofran-ODT ) 4 MG disintegrat ing tablet ondansetron ODT (Zofran-ODT ) 4 MG disintegrat ing tablet 10-29 00:00: 00 Yes 4mg 4 mg = 1 tab, PO, Q8H, PRN Nausea, 0 Refill(s) Noérosalind jason Young Epic Cefazolin 10-29 00:00: 00 No Notes: (Same As: Mario Cameron) MEDICATION WASTE Product Size: 1000 mg Product Wasted: ___ mg Noérosalind jason Vidal Hydralazine 10-28 23:24: 00 No Notes: (Same as: Apresoline ) Push over 5 minutes Saida Vidal Docusate Sodium 100 MG Oral Capsule [Colace] 10-28 23:00: 00 No 100 mg, 1 cap, Route: PO, Drug form: CAP, BID, Dosing Weight 57.727, kg, Start date: 10/28/19 17:00:00 POLICY DIRECTOR, Duration: 30 day, Stop date: 11/27/19 9:00:00 CDT, 0 Saida Vidal meloxicam 10-28 23:00: 00 No Notes: (Same as: Mobic) Saida Vidal BD Normal Saline Flush 10-28 22:31: 00 No Notes: (Same as: BD Posiflush) Saida Vidal Sodium Chloride 0.9% IV 10-28 22:31: 00 No 25 mL, Route: IV, Start date: 10/28/19 16:31:00 POLICY DIRECTOR, Duration: 30 day, Stop date: 11/27/19 17:30:00 CDT, PRN Line Flush, 0 Noérosalind jason Vidal Dulcolax Laxative 10-28 20:31: 00 No 5 mg, 1 tab, Route: PO, Drug form: ECTAB, ONCE, Dosing Weight 57.727, kg, PRN Constipati on, Start date: 10/28/19 14:31:00 POLICY DIRECTOR, 0 Saida Vidal Morphine 10-28 20:31: 00 No Notes: (Same as:Duramor ph, Astramorph -PF) Preservati ve free. Saida Vidal Benadryl 10-28 20:31: 00 No Notes: (Same as: Benadryl) Saida Vidal Periactin 10-28 20:31: 00 No Notes: (Same As: Periactin) Saida Vidal Melatonin 3 MG Extended Release Tablet 10-28 20:31: 00 No Notes: (Same as: Melatonin) Saida Vidal Saline Flush 0.9% 10-28 20:31: 00 No 10 ml, Route: IVP, Drug Form: INJ, Dosing Weight 57.727, kg, PRN, PRN Line Flush, Start date: 10/28/19 14:31:00 POLICY DIRECTOR, Duration: 30 day, Stop date: 11/27/19 15:30:00 CDT Saida Vidal Lactated Ringers IV 1,000 mL 10-28 20:31: 00 No 1,000 mL, Rate: 125 ml/hr, Infuse over: 8 hr, Route: IV, Dosing Weight 57.727 kg, Total Volume: 1,000, Start date: 10/28/19 14:31:00 POLICY DIRECTOR, Duration: 30 day, Stop date: 11/27/19 14:30:00 CDT, 1.65, m2, 0 Saida Vidal Acetaminoph en 325 MG / Hydrocodone Bitartrate 10 MG Oral Tablet 10-28 20:31: 00 No Notes: Do not exceed 4gm/day of acetaminop hen. (Same as: [place] 325/10) Saida Vidal Zofran ODT 10-28 20:31: 00 No Notes: (Same as: Zofran ODT) Saida Vidal Hydralazine 10-28 19:47: 00 No 10 mg, Route: IVP, Q20Min, Dosing Weight 57.727, kg, PRN Elevated BP, Start date: 10/28/19 13:47:00 POLICY DIRECTOR, Duration: 2 doses or times, Stop date: Limited # of times Saida Vidal Metoprolol 10-28 19:47: 00 No 1 mg, Route: IVP, Q5Min, Dosing Weight 57.727, kg, PRN Other -See Comment, Start date: 10/28/19 13:47:00 POLICY DIRECTOR, Duration: 5 doses or times, Stop date: Limited # of times Saida Vidal Morphine 10-28 19:47: 00 No 2 mg, Route: IVP, Q5Min, Dosing Weight 57.727, kg, PRN Pain Score 4-6, Start date: 10/28/19 13:47:00 POLICY DIRECTOR, Duration: 5 doses or times, Stop date: Limited # of times Noéoria jason Vidal Hydromorpho ne 10-28 19:47: 00 No 0.5 mg, Route: IVP, Q10Min, Dosing Weight 57.727, kg, PRN Pain Score 7-10, Start date: 10/28/19 13:47:00 POLICY DIRECTOR, Duration: 4 doses or times, Stop date: Limited # of times Noéoria jason Vidal Flumazenil 10-28 19:47: 00 No 0.2 mg, Route: IVP, PRN, Dosing Weight 57.727, kg, PRN Benzodiaze pine Reversal, Initial dose, Start date: 10/28/19 13:47:00 POLICY DIRECTOR, Duration: 30 day, Stop date: 11/27/19 14:46:00 CDT Memrosalind Vidal Naloxone 10-28 19:47: 00 No 0.4 mg, Route: IVP, Q2MIN, Dosing Weight 57.727, kg, PRN Narcotic Reversal, Start date: 10/28/19 13:47:00 POLICY DIRECTOR, Duration: 8 doses or times, Stop date: Limited # of times Saida Vidal Atropine 10-28 19:47: 00 No 0.2 mg, Route: IVP, Q5Min, Dosing Weight 57.727, kg, PRN Other -See Comment, as needed; for symptomati c pulse rate < 80% of mean 50 BPM, Start date: 10/28/19 13:47:00 POLICY DIRECTOR, Duration: 30 day, Stop date: 11/27/19 14:46:00 CDT Saida Vidal Ondansetron 10-28 19:47: 00 No 4 mg, Route: IVP, ONCE, Dosing Weight 57.727, kg, PRN Nausea & Vomiting, Start date: 10/28/19 13:47:00 POLICY DIRECTOR Saida Vidal lidocaine (ANES) 10-28 18:52: 00 No Route: IV, Drug form: INJ, ONCE, Stop date: 10/28/19 12:52:00 POLICY DIRECTOR Saida gomez Young propofol (ANES) 10-28 18:52: 00 No Route: IV, Drug form: INJ, ONCE, Stop date: 10/28/19 12:52:00 POLICY DIRECTOR Saida gomez [place] midazolam (ANES) 10-28 18:47: 00 No Route: IV, Drug form: SOLN, ONCE, Stop date: 10/28/19 12:47:00 POLICY DIRECTOR Saida gomez Young fentaNYL (ANES) 10-28 18:47: 00 No Route: IV, Drug form: INJ, ONCE, Stop date: 10/28/19 12:47:00 POLICY DIRECTOR Saida Vidal ceFAZolin (ANES) 1000 mg 10-28 18:41: 00 No Route: IV, Drug form: INJ, Start date: 10/28/19 12:41:00 POLICY DIRECTOR, Stop date: 10/28/19 13:41:00 POLICY DIRECTOR Saida Vidal vancomycin (ANES) 1000 mg 10-28 18:40: 00 No Route: IV, Drug form: INJ, Start date: 10/28/19 12:40:00 POLICY DIRECTOR, Stop date: 10/28/19 13:40:00 POLICY DIRECTOR Saida Vidal bupivacaine (ANES) 10-28 18:32: 00 No Route: INTRATHECA L, Drug Form: INJ, ONCE, Stop date: 10/28/19 12:32:00 POLICY DIRECTOR Saida Vidal propofol (ANES) 10 mg 10-28 18:05: 00 No Route: IV, Drug form: INJ, Start date: 10/28/19 12:05:00 POLICY DIRECTOR, Stop date: 10/28/19 13:05:00 POLICY DIRECTOR Saida Vidal Sodium Chloride 0.9% IV (ANES) 50 mL + tranexamic acid (ANES) 600 mg 10-28 18:05: 00 No Route: IV, Drug form: INJ, Start date: 10/28/19 12:05:00 POLICY DIRECTOR, Stop date: 10/28/19 13:05:00 POLICY DIRECTOR Saida Vidal Lactated Ringers Injection IV (ANES) 1000 mL 10-28 17:51: 00 No Route: IV, Total Volume: 1,000, Start date: 10/28/19 11:51:00 POLICY DIRECTOR, Stop date: 10/28/19 12:51:00 POLICY DIRECTOR Saida Vidal ceFAZolin + sterile water 20 mL 10-28 06:00: 00 No Notes: (Same As: Mario Cameron) MEDICATION WASTE Product Size: 1000 mg Product Wasted: ___ mg Saida Vidal vancomycin + Sodium Chloride 0.9% IV 250 mL 10-28 06:00: 00 No 2001 mg: infuse over 2.5 hours For adult patients only: Round to nearest 250 mg per Medical Staff approval Saida Vidal Zofran ODT 10-28 06:00: 00 No Notes: (Same as: Zofran ODT) Saida Vidal CeleBREX 10-28 06:00: 00 No Notes: NSAID. Please check indication . Not for seizure. (Same As: CeleBREX) Saida Vidal Cyklokapron + Sodium Chloride 0.9% IV 100 mL 10-28 06:00: 00 No Notes: (Same As: Cyklokapro n) Saida Pedrazaann Lyrica 10-28 06:00: 00 No Notes: (Same as: Lyrica) Saida Vidal acetaminoph en 10-28 06:00: 00 No Notes: Max acetaminop hen 4000 mg/day (4 gm/day). (Same as: Tylenol Extra Strength) Saida Pedrazaann dexamethaso ne 10-28 06:00: 00 No Notes: Concentrat ion: 4mg/ml Saida Pedrazaann famotidine 10-28 06:00: 00 No Notes: (Same as: Pepcid) Saida jason Vidal Folic Acid 10-23 17:31: 00 Yes = 1 tab, PO, Daily, 0 Refill(s) Saida jason Vidal Vitamin B12 10-23 17:31: 00 Yes = 1 tab, PO, Daily, 0 Refill(s) Noérosalind jason Vidal atorvastati n 20 MG Oral Tablet [Lipitor] 10-23 17:30: 00 Yes 20 mg = 1 tab, PO, Daily, 0 Refill(s) Noérosalind jason Young Hydrochloro thiazide 25 MG / Losartan Potassium 100 MG Oral Tablet [Hyzaar 100/25] 10-23 17:30: 00 Yes 1 tab, PO, Daily, 0 Refill(s) Saida jason Young Gemfibrozil 600 MG Oral Tablet [Lopid] 10-23 17:30: 00 No 600 mg = 1 tab, PO, Daily, 0 Refill(s) Noérosalind jason Young atorvastati n (Lipitor) 20 MG tablet atorvastati n (Lipitor) 20 MG tablet 10-23 00:00: 00 Yes 20mg 20 mg = 1 tab, PO, Daily, 0 Refill(s) Noérosalind jason Barrera losartan-hy droCHLOROth iazide (Hyzaar) 100-25 MG tablet losartan-hy droCHLOROth iazide (Hyzaar) 100-25 MG tablet 10-23 00:00: 00 Yes 1 tab, PO, Daily, 0 Refill(s) Noérosalind Pedrazaann Epic Hydralazine 2018-09 12:09: 00 No 5 mg, Route: IVP, Q20Min, Dosing Weight 56.818, kg, PRN Elevated BP, Start date: 07/17/19 7:09:00 CDT, Duration: 4 doses or times, Stop date: Limited # of times Saida Vidal Labetalol 2018-09 12:09: 00 No 5 mg, Route: IVP, Q5Min, Dosing Weight 56.818, kg, PRN Elevated BP, Start date: 07/17/19 7:09:00 CDT, Duration: 5 doses or times, Stop date: Limited # of times Saida Vidal Flumazenil 2018-09 12:09: 00 No 0.2 mg, Route: IVP, Drug form: INJ, PRN, Dosing Weight 56.818, kg, PRN Benzodiaze pine Reversal, Initial dose, Start date: 07/17/19 7:09:00 CDT, Duration: 30 day, Stop date: 08/16/19 6:08:00 POLICY DIRECTOR Noérosalind Pedrazaann Diphenhydra mine 2018-09 12:09: 00 No 12.5 mg, Route: IVP, Drug form: INJ, Q6H, Dosing Weight 56.818, kg, PRN Itching, Start date: 07/17/19 7:09:00 CDT, Duration: 30 day, Stop date: 08/16/19 7:08:00 POLICY DIRECTOR Noérosalind gomez Young glycopyrron ium 2018-09 12:09: 00 No 0.2 mg, Route: IVP, Drug form: INJ, Q5Min, Dosing Weight 56.818, kg, PRN Bradycardi a, Start date: 07/17/19 7:09:00 CDT, Duration: 3 doses or times, Stop date: Limited # of times Noérosalind jason Vidal Ondansetron 2018-09 12:09: 00 No 4 mg, Route: IVP, Drug form: INJ, ONCE, Dosing Weight 56.818, kg, PRN Nausea & Vomiting, Start date: 07/17/19 7:09:00 CDT Noérosalind jason Vidal Promethazin e 2018-09 12:09: 00 No 6.25 mg, Route: IVPB, ONCE, Dosing Weight 56.818, kg, PRN Nausea & Vomiting, Start date: 07/17/19 7:09:00 CDT Noérosalind jason Vidal midazolam (ANES) 2018-09 11:59: 00 No Route: IV, Drug form: SOLN, ONCE, Stop date: 07/17/19 6:59:00 CDT Memrosalind Vidal lidocaine (ANES) 2018-09 11:59: 00 No Route: IV, Drug form: INJ, ONCE, Stop date: 07/17/19 6:59:00 CDT Saida Vidal propofol (ANES) 2018-09 11:59: 00 No Route: IV, Drug form: INJ, ONCE, Stop date: 07/17/19 6:59:00 CDT Memrosalind Vidal ondansetron (ANES) 2018-09 11:59: 00 No Route: IV, Drug form: INJ, ONCE, Stop date: 07/17/19 6:59:00 CDT Saida Vidal famotidine (ANES) 2018-09 11:59: 00 No Route: IV, Drug form: INJ, ONCE, Stop date: 07/17/19 6:59:00 CDT Saida Vidal Lactated Ringers Injection IV (ANES) 1000 mL 2018-09 11:40: 00 No Route: IV, Total Volume: 1,000, Start date: 07/17/19 6:40:00 CDT, Stop date: 07/17/19 7:40:00 CDT Saida Vidal Citracal Regular 2018-09 15:26: 00 Yes 1 tab, PO, BID, 0 Refill(s) Saida Vidal magnesium oxide 400 mg oral tablet 2018-09 15:25: 00 Yes 400 mg = 1 tab, PO, Daily, 0 Refill(s) Saida Vidal CoQ10 2018-09 15:23: 00 Yes 200 mg, PO, Daily, 0 Refill(s) Saida Vidal losartan 100 mg oral tablet 2018-09 15:22: 00 Yes 100 mg = 1 tab, PO, Daily, 0 Refill(s) Saida Vidal Hydrochloro thiazide 2018-09 15:21: 00 Yes 25 mg, PO, Daily, 0 Refill(s) Saida Vidal atorvastati n 40 MG Oral Tablet [Lipitor] 2018-09 15:19: 00 Yes 40 mg = 1 tab, PO, Bedtime, 0 Refill(s) Saida Vidal atorvastati n (LIPITOR) 20 mg tablet 03-11 16:00: 14 Yes 20mg Take 20 mg by mouth at bedtime. [facility] losartan (COZAAR) 25 mg tablet 03-11 16:00: 14 Yes 25mg Take 25 mg by mouth daily. [facility] tramadol hydrochlori de 50 MG Oral Tablet 04-06 05:38: 00 Yes 50 mg = 1 tab, PO, BID, X 15 day, # 30 tab, 0 Refill(s) Noérosalind Vidal Natashaan 04-06 05:37: 00 No Notes: (Same as: Brady) MEDICATION WASTE Product Size: 4 mg Product Wasted: ___ mg Saida Vidal Morphine 04-06 05:37: 00 No Notes: (Same as:MORPhin e Sulfate) Saida Vidal Morphine 04-06 03:37: 00 No Notes: (Same as:MORPhin e Sulfate) Saida Vidal Morphine 04-06 02:59: 00 No 4 mg, Route: IVP, ONCE, Dosing Weight 95.455, kg, Priority: STAT, Start date: 04/05/17 21:59:00 CDT, Stop date: 04/05/17 21:59:00 CDT Saida Vidal Ondansetron 04-06 02:59: 00 No 4 mg, Route: IVP, Drug form: INJ, ONCE, Dosing Weight 95.455, kg, Priority: STAT, Start date: 04/05/17 21:59:00 CDT, Stop date: 04/05/17 21:59:00 CDT Saida Vidal ESTROGENS, CONJUGATED (PREMARIN ORAL) 01-31 21:30: 23 Yes Take by mouth. [facility] gemfibrozil (LOPID) 600 mg tablet 01-31 21:30: 22 Yes 600mg Take 600 mg by mouth 2 (two) times daily before breakfast and dinner. [facility] Lipitor TABS Lipitor TABS Yes 1 QD TAKE 1 TABLET Daily TDD:200 mg [facility] Hyzaar 100-25 MG Oral Tablet Hyzaar 100-25 MG Oral Tablet Yes [facility] Aspirin 81 MG TABS Aspirin 81 MG TABS Yes [facility] Vital Signs Vital Name Observation Time Observation Value Comments S ource Body height 2025-04-14 15:47:00 170.2 cm [facility] Body weight 2025-04-14 15:47:00 61.236 kg [facility] BMI 2025-04-14 15:47:00 21.14 kg/m2 [facility] Body height 2025-03-06 18:50:00 170.2 cm [facility] Body weight 2025-03-06 18:50:00 65.318 kg [facility] BMI 2025-03-06 18:50:00 22.55 kg/m2 [facility] Systolic blood pressure 2024-07-18 15:03:00 168 mm[Hg] [facility] Diastolic blood pressure 2024-07-18 15:03:00 84 mm[Hg] [facility] Heart rate 2024-07-18 15:03:00 51 /min [facility] Body temperature 2024-07-18 15:03:00 36.72 Suly [facility] Body height 2024-07-18 15:03:00 170.2 cm [facility] Body weight 2024-07-18 15:03:00 69.4 kg [facility] BMI 2024-07-18 15:03:00 23.96 kg/m2 [facility] Systolic blood pressure 2024-04-11 16:24:00 139 mm[Hg] [facility] Diastolic blood pressure 2024-04-11 16:24:00 78 mm[Hg] [facility] Heart rate 2024-04-11 16:24:00 78 /min [facility] Body temperature 2024-04-11 16:24:00 36 Suly [facility] Body height 2024-04-11 16:24:00 170.2 cm [facility] Body weight 2024-04-11 16:24:00 68.856 kg [facility] BMI 2024-04-11 16:24:00 23.78 kg/m2 [facility] Heart Rate 2019-10-29 21:36:00 [facility] Respitory Rate 2019-10-29 21:36:00 [facility] Systolic (mm Hg) 2019-10-29 21:36:00 [facility] Diastolic (mm Hg) 2019-10-29 21:36:00 [facility] Heart Rate 2019-10-29 17:58:00 [facility] Respitory Rate 2019-10-29 17:58:00 [facility] Systolic (mm Hg) 2019-10-29 17:58:00 [facility] Diastolic (mm Hg) 2019-10-29 17:58:00 [facility] Heart Rate 2019-10-29 13:29:00 [facility] Respitory Rate 2019-10-29 13:29:00 [facility] Systolic (mm Hg) 2019-10-29 13:29:00 [facility] Diastolic (mm Hg) 2019-10-29 13:29:00 [facility] Temperature Oral (F) 2019-10-29 09:40:00 98.7 F [facility] Temperature Oral (F) 2019-10-29 05:40:00 98.1 [facility] Temperature Oral (F) 2019-10-29 01:42:00 98.3 [facility] Height 2019-10-23 17:22:00 167.64 cm [facility] [place] Weight 2019-10-23 17:22:00 [facility] [place] BMI Calculated 2019-10-23 17:22:00 [facility] Respitory Rate 2019-07-17 12:55:00 [facility] [place] Systolic (mm Hg) 2019-07-17 12:55:00 [facility] [place] Diastolic (mm Hg) 2019-07-17 12:55:00 [facility] [place] Respitory Rate 2019-07-17 12:45:00 [facility] Systolic (mm Hg) 2019-07-17 12:45:00 [facility] [place] Diastolic (mm Hg) 2019-07-17 12:45:00 [facility] Respitory Rate 2019-07-17 12:30:00 [facility] [place] Systolic (mm Hg) 2019-07-17 12:30:00 [facility] [place] Diastolic (mm Hg) 2019-07-17 12:30:00 [facility] Height 2019-07-16 15:35:00 170.18 cm [facility] [place] Weight 2019-07-16 15:35:00 [facility] BMI Calculated 2019-07-16 15:35:00 [facility] [place] BP Systolic 2019-03-28 09:40:00 132 mm[Hg] Location: LUE; Position: Sitting [facility] BP Diastolic 2019-03-28 09:40:00 81 mm[Hg] Location: LUE; Position: Sitting [facility] Weight 2019-03-28 09:40:00 134.25 [lb_av] [facility] Height 2019-03-28 09:40:00 66 [in_us] [facility] Body Mass Index Calculated 2019-03-28 09:40:00 21.67 kg/m2 [facility] Temperature 2019-03-28 09:40:00 97.5 [degF] Method: Temporal [facility] Heart Rate 2019-03-28 09:40:00 64 /min Location: R Brachial Artery; Quality: Normal [facility] Respiration Rate 2019-03-28 09:40:00 15 /min [facility] O2 SAT 2019-03-28 09:40:00 99 % Source: RA [facility] Temperature Oral (F) 2017-04-06 06:00:00 97.8 F [facility] Respitory Rate 2017-04-06 06:00:00 [facility] [place] Heart Rate 2017-04-06 06:00:00 [facility] Systolic (mm Hg) 2017-04-06 06:00:00 [facility] [place] Diastolic (mm Hg) 2017-04-06 06:00:00 [facility] Systolic (mm Hg) 2017-04-06 03:10:00 [facility] Diastolic (mm Hg) 2017-04-06 03:10:00 [facility] [place] Temperature Oral (F) 2017-04-06 03:10:00 98.6 F [facility] [place] Heart Rate 2017-04-06 03:10:00 [facility] Respitory Rate 2017-04-06 03:10:00 [facility] Height 2017-04-06 02:23:00 167.64 [facility] BMI Calculated 2017-04-06 02:23:00 [facility] [place] Weight 2017-04-06 02:23:00 [facility] [place] Temperature Oral (F) 2017-04-06 02:23:00 98.3 F [facility] Respitory Rate 2017-04-06 02:23:00 [facility] [place] Systolic (mm Hg) 2017-04-06 02:23:00 [facility] Diastolic (mm Hg) 2017-04-06 02:23:00 [facility] [place] Heart Rate 2017-04-06 02:23:00 [facility] Procedures Procedure Date / Time Performed Performing Clinician Source MRI shoulder right wo IV contrast 2025-04-14 00:00:00 [facility] Epic Revision of right total hip arthroplasty 2019-10-28 06:00:00 [facility] Laparoscopic sleeve gastrectomy 2018-03-12 05:00:00 [facility] Breast reduction, bilateral 2012-08-30 06:00:00 [facility] Abdominal hysterectomy 1975-09-18 06:00:00 [facility] Hysterectomy [facility] History of [facility]olecystectomy [facility] History of Hip Replacement [facility] replacement [facility] Plan of Care Planned Activity Planned Date Details Comments Source Encounters Start Date/Time End Date/Time Encounter Type Admission Type Attending Clinicians Care Facility Care Department Encounter ID Source 2019-10-28 09:27:00 Inpatient [id number] 2025-04-14 00:00:00 2025-04-14 13:20:59 Orders Only Luciana Hernadez [facility] 1..840.114 [id number] Saida Vidal [facility] 2025-04-14 10:55:00 2025-04-14 11:32:50 Outpatient [facility] [id number] [facility] 2025-04-14 11:15:00 2025-04-14 11:32:39 Office Visit LUCIANA HERNADEZ [place] [facility] 1..840.114 [id number] [id number] [facility] 2025-04-07 10:30:00 2025-04-07 10:30:00 Outpatient NERIS MORELAND [facility] [id number] [facility] 2025-03-06 14:50:00 2025-03-06 15:27:59 Outpatient [facility] [id number] [facility] 2025-03-06 14:55:00 2025-03-06 15:27:51 Outpatient [facility] [id number] [facility] 2025-03-06 13:45:00 2025-03-06 15:27:38 Office Visit Luciana Hernadez [place] [facility] 1..840.114 [id number] [facility] 2024-07-18 11:00:00 2024-07-18 11:03:32 Office Visit Kanu Barrera [facility] [id number] [id number] [id number] [id number] [facility] 2024-07-12 10:30:00 2024-07-12 10:30:00 Outpatient KANU BARRERA [facility] [id number] [facility] 2024-04-11 11:00:00 2024-04-11 12:54:16 Office Visit Kanu Barrera [facility] [address] 1..114 [id number] [id number] [facility] 2024-03-20 12:00:00 2024-03-20 12:00:00 Outpatient KANU BARRERA [facility] [id number] [facility] 2024-03-09 09:03:00 2024-03-09 13:24:00 Inpatient E LUICANA EDWARDS [facility] [id number] [facility] 2021-07-30 09:00:00 2021-07-30 09:00:00 Outpatient R [facility] [id number] [facility] 2021-04-29 00:00:00 2021-04-29 00:00:00 Letter (Out) Aditya Bae [facility] [place] 1..114 350.1.13.10 [id number] [id number] [facility] 2021-04-28 09:25:56 2021-04-28 09:45:56 Laboratory Only Lab, Ad[facility] [address] ..114 350.1.13.10 [id number] [id number] [facility] 2021-04-28 09:20:00 2021-04-28 09:20:00 Outpatient R WILDER SIGALATANY [facility] [id number] [facility] 2021-04-28 00:00:00 2021-04-28 00:00:00 Letter (Out) Doctor Unassigned, [place] [facility] 1..114 350.1.13.10 4.2.7.2.686 [id number] [facility] 2021-04-28 00:00:00 2021-04-28 00:00:00 Letter (Out) Doctor Unassigned, [place] [facility] [id number] [id number] [id number] [id number] [facility] 2019-10-28 15:27:00 2019-10-29 22:15:00 Inpatient nullFlavo r [facility] [id number] [facility] 2019-10-09 22:38:00 2019-10-10 05:59:00 Outpt Diag Services nullFlavo r [facility] [place] [id number] [facility] 2019-09-30 10:00:00 2019-09-30 10:00:00 Appointmen t; JULIAN, LAE, CHURNER JULIAN, LEA, CHURNER UTP [facility] [address] [id number] [place] [facility] 2019-09-20 10:00:00 2019-09-20 10:00:00 Appointmen t; JULIAN, LEA, CHURNER JULIAN, LEA, CHURNER [facility] [id number] [place] [facility] 2019-09-09 16:00:00 2019-09-09 16:00:00 Appointmen t; JULIAN, LEA, CHURNER JULIAN, LEA, CHURNER [facility] [id number] [place] [facility] 2019-09-02 14:00:00 2019-09-02 14:00:00 Appointmen t; JULIAN, LEA, CHURNER JULIAN, LEA, CHURNER [facility] [id number] [place] [facility] 2019-08-29 14:00:00 2019-08-29 14:00:00 Appointmen t; JULIAN, LEA, CHURNER JULIAN, LEA, CHURNER [facility] [id number] [place] [facility] 2019-08-05 11:00:00 2019-08-05 11:00:00 Appointmen t; JULIAN, LEA, CHURNER JULIAN, LEA, CHURNER UTP [facility] [id number] [place] [facility] 2019-07-29 11:00:00 2019-07-29 11:00:00 Appointmen t; JULIAN, LEA, CHURNER JULIAN, LEA, CHURNER [facility] Psychiatry Outpatient Clinic - [facility] [id number] [place] [facility] 2019-07-17 10:16:00 2019-07-17 13:38:00 Day Surgery nullFlavo r [facility] [id number] [facility] jason [place] 2019-07-17 05:16:00 2019-07-17 05:16:00 Outpatient [facility] [id number] [facility] jason [facility] 2019-07-15 11:00:00 2019-07-15 11:00:00 Appointmen t; JULIAN, LEA, CHURNER JULIAN, LEA, CHURNER [facility] Psychiatry Outpatient Clinic - [facility] [id number] [place] [facility] 2019-07-03 09:00:00 2019-07-03 09:00:00 Appointmen t; JULIAN, LEA, CHURNER JULIAN, LEA, CHURNER [facility] Psychiatry Outpatient [facility] - [facility] [id number] [place] [facility] 2019-06-24 10:00:00 2019-06-24 10:00:00 Appointmen t; JULIAN, LEA, CHURNER JULIAN, LEA, CHURNER [facility] Psychiatry Outpatient [facility] - [facility] [id number] [place] [facility] 2019-05-21 09:00:00 2019-05-21 09:00:00 Appointmen t; JULIAN, LEA, CHURNER JULIAN, LEA, CHURNER [facility] Psychiatry Outpatient [facility] - [facility] [id number] [place] [facility] 2019-03-28 09:20:00 2019-03-28 09:20:00 Appointmen t; VAHE ADAMES M.D. SUAREZ, MARTHA, M.D. [facility] y - [facility] [address] [id number] [place] [facility] 2017-04-06 02:09:00 2017-04-06 06:19:00 Emergency nullFlavo r [facility] [id number] Saida gomez [place] Results Test Description Test Time Test Comments Results Resul t Comments Source CHEM PANEL 2019-10-29 10:10:00 93 [facility] HEMATOLOGY 2019-10-29 10:10:00 5.7 [facility] BACTERIAL - SEROLOGY 2019-10-23 18:03:00 Negative (10/23/19 12:03 PM) [facility] ELECTROLYTES 2019-07-17 11:08:00 141 [facility] CHEM PANEL 2017-04-06 03:07:00 36 [facility] HEMATOLOGY 2017-04-06 03:07:00 0.96 [facility] TOXICOLOGY 2017-04-06 03:07:00 185 [facility] Notes Date/Time Note Provider Source Referral ID Status Reason Start Date Expiration Date V isits Requested Visits Authorized [id number] Authorized 04/14/2025 04/09/2026 1 1 [id number] 13:21:07Scheduled Orders Health Maintenance Due Date Last Done Comments Bone Density Scan 1950 CT Colonography 1950 Colonoscopy 1950 Colorectal Cancer Screening 1950 FIT-DNA 1950 FIT 1950 FOBT 1950 Medicare Annual Wellness (AWV) 1950 Sigmoidoscopy 1950 Mammogram 1991 Pneumococcal Vaccine: 50+ Ye ars (1 of 1 - PCV) 2001 Zoster Vaccines (1 of 2) 2001 Influenza Vaccine (#1) 2025 Respiratory Syncytial Virus (RSV) Adult Series (1 - 1-dose 75+ series) 2026 Lipid Panel 03/07/2029 03/07/2024 DTaP/Tdap/Td Vaccines (2 - T d or Tdap) 11/23/2033 11/24/2023 HIB Vaccines Aged Out No longer eligi ble based on patient's age to complete this topic HPV Vaccines Aged Out No longer eligi ble based on patient's age to complete this topic Hepatitis A Vaccines Aged Out No long er eligible based on patient's age to complete this topic Hepatitis B Vaccines Aged Out No long er eligible based on patient's age to complete this topic IPV Vaccines Aged Out No longer eligi ble based on patient's age to complete this topic Meningococcal Vaccine Aged Out No naveen charito eligible based on patient's age to complete this topic Rotavirus Vaccines Aged Out No longer eligible based on patient's age to complete this topic [id number] 13:21:07 Diagnosis Displaced fracture of greate r tuberosity of right humerus, initial encounter for closed fracture Unspecified rotator cuff tea r or rupture of right shoulder, not specified as traumatic Other specific arthropathies , not elsewhere classified, right shoulder [id number] 13:21:07 [place] [id number] 11:13:41 Associated Problem(s): Displaced fracture of greater tuberosity of right humerus, initial encounter for closed fracture Rest, ice, compression, elevation (RICE). Physical therapy orders for outpatient rehabilitation prescribed (please remember to take the order to a physical therapy location of your choice). If no improvement may consider additional imaging. A home exercise program is encouraged. The following studies were reviewed and discussed during today's visit: Radiographs. MRI has been ordered and we shall follow up after completion and read by the radiologist to discuss a further plan of care and treatment options. Consider using an over the counter topical medication such as Salonpas/Icy Hot/BioFreeze. Patient verbalized understanding and agrees with plan of care. [facility]2025-06-19 15:18:29 Associated Problem(s): Displaced fracture of greater tuberosity of right humerus, initial encounter for closed fracture Prescription for Tramadol 50mg. Take 1-2 every 4-6 hours as needed for pain. Tramadol is a narcotic pain medication. Use only as directed. Do NOT drive or operate machinery while using this medication. has been sent to your pharmacy on file. The following studies were reviewed and discussed during today's visit: Radiographs. Referral placed for further evaluation Dr Neris Moreland, Orthopedic surgeon, [place] [place] [facility] Consider using an over the counter topical medication such as Salonpas/Icy Hot/BioFreeze. Patient verbalized understanding and agrees with plan of care. Sling to continue, no reaching or forward flexion. [facility]
[2025-04-26] MEDS ORDERED: MORPHINE 2 MG/ML SYR ONE (11:56)
[2025-04-26 12:01] LABS: Absolute Lymphocytes (CBC) 0.9 K/uL (0.7-4.9); Hematocrit 41.2 % (36.0-45.0); Hemoglobin 13.8 g/dL (12.0-15.0); MCH 36.1 pg (27.0-35.0); MCHC 33.5 g/dL (32.0-36.0); MCV 107.5 fL (80-100); MPV 10.1 fL (7.6-11.3); Nucleated RBC Absolute Count 0.0 (0-0); Nucleated Red Blood Cells % 0.0 % (0-0); RBC Red Blood Cell Count 3.83 M/uL (3.86-4.86); White Blood Count 3.70 thou/uL (4.3-10.9)
[2025-04-26 12:26] LABS: Anion Gap 12.7 mEq/L (5.0-15.0); BUN Blood Urea Nitrogen 10.0 mg/dL (7-18); Glucose Level 151.0 mg/dL (74-106); Troponin High Sensitivity 9.5 pg/mL (<58.9)
[2025-04-26 12:34] LABS: Potassium 3.7 mEq/L (3.5-5.1)
[2025-04-26] MEDS ORDERED: HYDROMORPHONE HCL 0.5 MG/0.5 ML INJ ONE (12:49)
--- NOTE | 2025-04-26 12:55 | RAD REPORT ---
EXAMINATION: ONE VIEW CHEST XR CLINICAL INDICATION: Female, 75 years old.,dizziness TECHNIQUE: Frontal chest projection is submitted. Examination is limited by patient positioning and t echnique. COMPARISON: 11/12/2023 FINDINGS: The lungs are well inflated and clear. No pneumothorax or sizable effusion. The heart is normal in s ize. Mediastinal contours are unremarkable. Implantable rhythm monitoring device in place. IMPRESSION: No acute intrathoracic abnormalities.
--- NOTE | 2025-04-26 12:59 | RAD REPORT ---
EXAMINATION: XR LEFT HUMERUS HISTORY: PAIN TECHNIQUE: Multiple views of the left humerus were obtained. COMPARISON: None FINDINGS: No acute bone or joint abnormality detected. Moderate degenerative changes.
--- NOTE | 2025-04-26 13:00 | RAD REPORT ---
EXAMINATION: XR Elbow Left 2 View CLINICAL INDICATION: Female, 75 years old. PAIN TECHNIQUE: 2 view radiographs of the left elbow were obtained. COMPARISON: No prior exam. FINDINGS: Displaced mildly communicated olecranon process fracture. Cranial rotation of the largest f ragment. Suspected moderate joint effusion. No evidence of arthropathy. No suspicious focal bone lesion. Soft tissues are unremarkable. IMPRESSION: Displaced mildly communicated olecranon process fracture. Cranial rotation of the largest fragment. S uspected moderate joint effusion.
--- NOTE | 2025-04-26 13:21 | RAD REPORT ---
EXAM: CT brain without contrast HISTORY: TRAUMA COMPARISON: 02/16/2025 TECHNIQUE: Multiple contiguous axial images were obtained and a CT of the brain without contrast. Sag ittal and coronal reformats were performed. FINDINGS: No evidence of hydrocephalus, intracranial hemorrhage, or extra-axial fluid collection. Mild brain atrophy with mild periventricular and deep white matter chronic microvascular ischemic ch anges present. The calvarium is intact. The visualized paranasal sinuses and mastoid air cells are essentially clear . IMPRESSION: No evidence of acute intracranial abnormality. EXAM: CT of the cervical spine without contrast HISTORY: TRAUMA COMPARISON: None TECHNIQUE: Multiple contiguous axial images were obtained in a CT of the cervical spine without contr ast. Sagittal and coronal reformats were performed. FINDINGS: The vertebral bodies demonstrate normal height and alignment. No evidence of acute fracture or subluxation.. Moderate degenerative changes , stable. No prevertebral soft tissue swelling is seen. The posterior facets are well aligned. Normal alignment of the skull base with the cervical spine is seen. The lung apices are unremarkable. IMPRESSION: No evidence of acute osseous abnormality of the cervical spine.
--- NOTE | 2025-04-26 15:09 | ER ---
Nurse's Notes [facility] Name: Meghann Devine Age: 75 yrs Sex: Female : 1950 Arrival Date: 04/26/2025 Time: 11:19 Bed 19 Private MD: Diagnosis: Fall (on) (from) other stairs and steps;Contusion of left elbow-Olecranon Process Fracture Presentation: 04/26 11:30 Chief complaint: EMS states: toned out for fall. Patient became lightheaded and fell on me1 tile floor. c/o left elbow pain. Bruises noted to scalp, No LOC. No blood thinners. Pain level 5/10. Coronavirus screen: Vaccine status: Patient reports receiving the 2nd dose of the covid vaccine. Ebola Screen: No symptoms or risks identified at this time. Initial Sepsis Screen: Does the patient meet any 2 criteria? No. Patient's initial sepsis screen is negative. Does the patient have a suspected source of infection? No. Patient's initial sepsis screen is negative. Risk Assessment: Do you want to hurt yourself or someone else? Patient reports no desire to harm self or others. Onset of symptoms was April 26, 2025 at 10:45. 11:30 Method Of Arrival: EMS: [place] [id number] 11:30 Acuity: NELI 3 al1 Triage Assessment: 11:32 General: Appears uncomfortable, well groomed, well developed, well nourished, Behavior al1 is calm, cooperative, appropriate for age, Reports. Pain: Complains of pain in left elbow Pain does not radiate. Pain currently is 5 out of 10 on a pain scale. Quality of pain is described as aching, Pain began suddenly, Is continuous. EENT: No signs and/or symptoms were reported regarding the EENT system. Neuro: Level of Consciousness is awake, alert, obeys commands, Oriented to person, place, time, situation, Appropriate for age. Neuro: Reports dizziness, before falling. Cardiovascular: Patient's skin is warm and dry. Respiratory: Airway is patent Respiratory effort is even, unlabored, Respiratory pattern is regular, symmetrical. GI: No signs and/or symptoms were reported involving the gastrointestinal system. : No signs and/or symptoms were reported regarding the genitourinary system. Derm: Skin is healthy with good turgor, Skin is normal, Wound noted left arm Wound is multiple skin tears. Musculoskeletal: Circulation, motion, and sensation intact. Range of motion: limited in left elbow Reports pain in left arm. Injury Description: became dizzy and fell injuring left elbow on tile floor. Historical: - Allergies: 11:32 Lisinopril; me1 - PMHx: 11:32 Cerebrovascular accident; Atrial fibrillation; me1 - Immunization history:: Adult Immunizations up to date. - Infectious Disease History:: Denies. - Social history:: Smoking status: Patient denies any tobacco usage or history of. - History obtained from: EMS. Screenin:36 [facility] ED Fall Risk Assessment (Adult) History of falling in the last 3 months, me1 including since admission Yes- single mechanical fall (1 pt) Confusion or Disorientation No (0 pts) Intoxicated or Sedated No (0 pts) Impaired Gait No (0 pts) Mobility Assist Device Used No (0 pt) Altered Elimination No (0 pt) Score/Fall Risk Level 0 - 2 = Low Risk Maintained a safe environment, Provided non-skid footwear, Hourly rounding (assess needs \T\ fall precautionary measures) done. Abuse screen: Denies threats or abuse. Nutritional screening: No deficits noted. Tuberculosis screening: No symptoms or risk factors identified. Assessment: 11:36 General: See triage assessment. me1 Vital Signs: 11:30 BP 140 / 74; Pulse 93; Resp 17; Temp 97.9; Pulse Ox 98% ; Weight 62.6 kg; Height 5 ft. me1 7 in. ; Pain 5/10; 12:00 BP 145 / 68; Pulse 61; Resp 12; Pulse Ox 97% ; me1 12:43 BP 174 / 98; Pulse 65; Resp 14; Pulse Ox 100% ; me1 13:00 BP 153 / 83; Pulse 69; Resp 17; Pulse Ox 96% ; me1 14:00 BP 142 / 75; Pulse 70; Resp 14; Pulse Ox 99% ; me1 15:00 BP 146 / 71; Pulse 74; Resp 14; Pulse Ox 99% ; me1 11:30 Body Mass Index 21.61 (62.60 kg, 170.18 cm) me1 11:30 Pain Scale: Adult al1 [place] Coma Score: 14:59 Eye Response: spontaneous(4). Motor Response: obeys commands(6). Verbal Response: ci oriented(5). Total: 15. ED Course: 11:30 Patient arrived in ED. me1 11:31 Marianela Bennett is Attending Physician. ci 11:32 Triage completed. me1 11:32 Arm band placed on Patient placed in an exam room. me1 11:36 Patient has correct armband on for positive identification. Bed in low position. Call me1 light in reach. Side rails up X2. Provided Education on: POC. Verbalized understanding.. Client placed on continuous cardiac and pulse oximetry monitoring. NIBP monitoring applied. front desk monitor on. Pulse ox on. NIBP on. 11:36 No provider procedures requiring assistance completed. Maintain EMS IV. Dressing me1 intact. Good blood return noted. Site clean \T\ dry. Gauge \T\ site: 22g R wrist. Flushed with 10 mL NS. 11:37 XRAY Elbow LEFT 2 view Sent. me1 11:54 Kathleen Barnes, RN is Primary Nurse. kb4 11:55 Ngozi Martin, KRAIG is Primary Nurse. me1 11:55 Initial lab(s) drawn, by me, sent to lab. EKG done, by ED staff, reviewed by Marianela [facility] Sabrina. 12:30 XRAY Chest (1 view) In Process Unspecified. EDMS 12:30 XRAY Elbow LEFT 2 view In Process Unspecified. EDMS 12:30 XRAY Humerus LEFT In Process Unspecified. EDMS 12:37 CT Head C Spine In Process Unspecified. EDMS 14:31 Orthoglass splint: posterior long arm splint applied to the left arm. Sling applied to em1 left arm. 15:06 Hardeep Brunson MD is Referral Physician. ci 15:46 IV discontinued, intact, bleeding controlled, No redness/swelling at site. Pressure me1 dressing applied. Administered Medications: 11:55 Drug: NS 0.9% IV 1000 ml IV at 1 bolus Per protocol; to be given as a bolus over 60 me1 minutes {Note: finished EMS fluids.} Route: IV; Rate: 1 bolus; Site: right wrist; 15:33 Follow up: Response: No adverse reaction; IV Status: Completed infusion; IV Intake: me1 1000ml 12:11 Drug: morphine IVP or IV 2 mg IVP once over 4 mins Route: IVP; Infused Over: 4 mins; me1 Site: right wrist; 12:53 Follow up: Response: No adverse reaction; Pain is unchanged, physician notified me1 12:53 Drug: HYDROmorphone IVP 0.5 mg IVP once Route: IVP; Site: right wrist; me1 15:33 Follow up: Response: No adverse reaction; Pain is decreased me1 15:46 Not Given (Patient Objection): tetanus-diphtheria toxoidadult 0.5 ml IM once; Provide me1 Vaccine Information Statement (VIS). 15:46 Drug: Boostrix Tdap IM 0.5 ml IM once; as a single dose Route: IM; Site: right deltoid; me1 15:46 Follow up: Response: No adverse reaction me1 Medication: 11:36 VIS not applicable for this client. me1 Intake: 15:33 IV: 1000ml; Total: 1000ml. me1 Outcome: 15:08 Discharge ordered by . ci 15:46 Discharged to home via wheelchair, with family, me1 15:46 Condition: stable 15:46 Discharge instructions given to patient, family, Instructed on discharge instructions, follow up and referral plans. medication usage, Demonstrated understanding of instructions, follow-up care, medications, Prescriptions given X 2, 15:47 Patient left the ED. me1 Signatures: Dispatcher [employer] Lobo Wheeler em1 Ngozi Martin RN RN me1 Marianela Bennett Kayla RN RN kb4 Corrections: (The following items were deleted from the chart) 11:34 11:32 Allergies: No Known Allergies; me1 me1 11:58 11:55 NS 0.9% IV 1000 ml IV at 1 bolus in right wrist me1 me1
--- NOTE | 2025-04-26 15:09 | EDPHYS ---
Physician Documentation [facility] Name: Meghann Devine Age: 75 yrs Sex: Female : 1950 Arrival Date: 04/26/2025 Time: 11:19 Bed 19 Private MD: ED Physician Marianela Bennett HPI: 04/26 14:57 This 75 yrs old Female presents to ER via EMS with complaints of Fall Injury. ci 14:57 Patient is a 75-year-old female with PMH CVA, A-fib not on Eliquis who presents to the ED with chief complaint of fall. Patient was lightheaded and fell. Positive head strike, no LOC. Patient has not taking her Eliquis in several months. Complaining of left elbow pain. Patient sustained abrasion to forearms, tetanus not up-to-date. Patient lost her last week and has been under a lot of stress. Historical: - Allergies: 11:32 Lisinopril; me1 - PMHx: 11:32 Cerebrovascular accident; Atrial fibrillation; me1 - Immunization history:: Adult Immunizations up to date. - Infectious Disease History:: Denies. - Social history:: Smoking status: Patient denies any tobacco usage or history of. - History obtained from: EMS. ROS: 14:59 Constitutional: Negative for fever, chills, and weight loss, Cardiovascular: Negative ci for chest pain, palpitations, and edema, Respiratory: Negative for shortness of breath, cough, wheezing, and pleuritic chest pain, Neuro: Negative for headache, weakness, numbness, tingling, and seizure, 14:59 MS/extremity: Positive for deformity, pain, swelling, Exam: 14:59 Constitutional: This is a well developed, well nourished patient who is awake, alert, ci and in no acute distress. Head/Face: Normocephalic, atraumatic. Cardiovascular: Regular rate and rhythm with a normal S1 and S2. No gallops, murmurs, or rubs. Normal PMI, no JVD. No pulse deficits. Respiratory: Lungs have equal breath sounds bilaterally, clear to auscultation and percussion. No rales, rhonchi or wheezes noted. No increased work of breathing, no retractions or nasal flaring. Abdomen/GI: Soft, non-tender, with normal bowel sounds. No distension or tympany. No guarding or rebound. No evidence of tenderness throughout. Back: No spinal tenderness. No costovertebral tenderness. Full range of motion. Neuro: Awake and alert, GCS 15, oriented to person, place, time, and situation. Cranial nerves II-XII grossly intact. Motor strength 5/5 in all extremities. Sensory grossly intact. Cerebellar exam normal. Normal gait. 14:59 Musculoskeletal/extremity: Extremities: Left elbow deformity with moderate swelling and tenderness to palpation, abrasion to left forearm. Radial pulse 2+, brachial pulse 2+, sensation to light touch is intact, cap refill less than 2 seconds.. 14:59 Skin: Appearance: lesion(s), Scattered abrasion to bilateral forearm. Vital Signs: 11:30 BP 140 / 74; Pulse 93; Resp 17; Temp 97.9; Pulse Ox 98% ; Weight 62.6 kg; Height 5 ft. me1 7 in. ; Pain 5/10; 12:00 BP 145 / 68; Pulse 61; Resp 12; Pulse Ox 97% ; me1 12:43 BP 174 / 98; Pulse 65; Resp 14; Pulse Ox 100% ; me1 13:00 BP 153 / 83; Pulse 69; Resp 17; Pulse Ox 96% ; me1 14:00 BP 142 / 75; Pulse 70; Resp 14; Pulse Ox 99% ; me1 15:00 BP 146 / 71; Pulse 74; Resp 14; Pulse Ox 99% ; me1 11:30 Body Mass Index 21.61 (62.60 kg, 170.18 cm) ia1 11:30 Pain Scale: Adult me1 [place] Coma Score: 14:59 Eye Response: spontaneous(4). Motor Response: obeys commands(6). Verbal Response: ci oriented(5). Total: 15. Procedures: 15:23 Splinting: Splint applied to left arm using Orthoglass splint, applied by tech. ci Examined by me, post splint application: neurovascular intact, 2+ distal pulses palpable, brisk capillary refill noted, Patient tolerated well. MDM: 11:31 Medical Screening Exam initiated ci 14:59 Differential diagnosis: abrasion, closed head injury, contusion, fracture, laceration, ci sprain, strain. Data reviewed: vital signs, nurses notes. ED course: Rate is 60 beats per minute. Rhythm is regular. QRS axis is normal. ME interval is slightly prolonged at 182 msec. QRS interval is normal at 64 msec. QT interval is normal at 452 msec. Clinical impression: Sinus rhythm with sinus arrhythmia, no acute ischemic changes. 14:59 ED course: Patient presents with fall. Found to have a left olecranon process fracture. ci X-ray picture was sent to Dr. Chowdhury orthopedic surgery who agrees with posterior long-arm splint and outpatient follow-up in 3 to 5 days. Patient tolerated splint, neurovascularly intact. Given morphine in the ER with improvement in pain. Will DC with Tylenol 3.. 15:23 Special discussion: Based on the history and exam findings, there is no indication for ci further emergent testing or inpatient evaluation. I discussed with the patient/guardian the need to see the orthopedic surgeon for further evaluation of the symptoms. 04/26 11:35 Order name: Basic Metabolic Panel; Complete Time: 12:53 ci 04/26 11:35 Order name: CBC with Diff; Complete Time: 12:53 ci 04/26 11:35 Order name: Troponin HS; Complete Time: 12:53 ci 04/26 11:35 Order name: XRAY Chest (1 view); Complete Time: 13:07 ci 04/26 11:35 Order name: CT Head C Spine; Complete Time: 13:57 ci 04/26 11:35 Order name: XRAY Elbow LEFT 2 view; Complete Time: 13:07 ci 0809 11:35 Order name: XRAY Humerus LEFT; Complete Time: 13:07 ci 04/26 11:35 Order name: EKG; Complete Time: 11:36 ci 04/26 11:35 Order name: Cardiac monitoring; Complete Time: 11:55 ci 04/26 11:35 Order name: EKG - Nurse/Tech; Complete Time: 11:55 ci 04/26 11:35 Order name: IV Saline Lock; Complete Time: 11:37 ci 04/26 11:35 Order name: Labs collected and sent; Complete Time: 11:37 ci 08 11:35 Order name: O2 Per Protocol; Complete Time: 11:37 ci 04/26 11:35 Order name: O2 Sat Monitoring; Complete Time: 11:37 ci Administered Medications: 11:55 Drug: NS 0.9% IV 1000 ml IV at 1 bolus Per protocol; to be given as a bolus over 60 me1 minutes {Note: finished EMS fluids.} Route: IV; Rate: 1 bolus; Site: right wrist; 15:33 Follow up: Response: No adverse reaction; IV Status: Completed infusion; IV Intake: me1 1000ml 12:11 Drug: morphine IVP or IV 2 mg IVP once over 4 mins Route: IVP; Infused Over: 4 mins; me1 Site: right wrist; 12:53 Follow up: Response: No adverse reaction; Pain is unchanged, physician notified me1 12:53 Drug: HYDROmorphone IVP 0.5 mg IVP once Route: IVP; Site: right wrist; me1 15:33 Follow up: Response: No adverse reaction; Pain is decreased me1 15:46 Not Given (Patient Objection): tetanus-diphtheria toxoidadult 0.5 ml IM once; Provide me1 Vaccine Information Statement (VIS). 15:46 Drug: Boostrix Tdap IM 0.5 ml IM once; as a single dose Route: IM; Site: right deltoid; me1 15:46 Follow up: Response: No adverse reaction me1 Disposition Summary: 04/26/25 15:08 Discharge Ordered Notes: Location: Home ci Condition: Stable ci Diagnosis - Fall (on) (from) other stairs and steps ci - Contusion of left elbow - Olecranon Process Fracture ci Followup: ci - With: Hardeep Chowdhury MD - When: 2 - 3 days - Reason: Recheck today's complaints, Continuance of care Discharge Instructions: - Discharge Summary Sheet ci - Distal Humerus Elbow Fracture ci Forms: - Medication Reconciliation Form ci - Antibiotic Education ci - Prescription Opioid Use ci - Patient Portal Instructions ci - Leadership Thank You Letter ci Prescriptions: - Tylenol-Codeine #3 300mg-30mg Oral tablet - take 1 tablet ORAL route every 8 hours As needed; 15 tablet; Refills: 0, ci Product Selection Permitted Signatures: Dispatcher [employer] Ngozi Bill RN RN me1 Marianela Bennett ci Corrections: (The following items were deleted from the chart) 11:34 11:32 Allergies: No Known Allergies; me1 me1 11:36 11:36 Humerus Left+RAD.RAD.BRZ ordered. EDMS EDMS 12:29 11:36 Shoulder Left 2 View+RAD.RAD.BRZ ordered. [facility] EDMS 14:59 14:57 Patient is a 75-year-old female with PMH CVA, A-fib not on Eliquis who presents ci to the ED with chief complaint of fall. Patient was lightheaded and fell. Positive head strike, no LOC. Patient has not taking her Eliquis in several months. Complaining of left elbow pain.. ci 15:00 14:57 Patient is a 75-year-old female with PMH CVA, A-fib not on Eliquis who presents ci to the ED with chief complaint of fall. Patient was lightheaded and fell. Positive head strike, no LOC. Patient has not taking her Eliquis in several months. Complaining of left elbow pain. Patient sustained abrasion to forearms, tetanus not up-to-date.. ci 15:25 14:59 ED course: Patient presents with fall. Found to have a left olecranon process ci fracture. X-ray picture was sent to Dr. Chowdhury orthopedic surgery who agrees with posterior long-arm splint and outpatient follow-up in 3 to 5 days. Patient tolerated splint, neurovascularly intact, imaging morphine in the ER. Will DC with Tylenol 3.. ci
[2025-04-26] MEDS ORDERED: TDAP (DIPHTH,PERTUSS(ACELL),TET VAC) 0.5 ML VIAL IMVAC ONE (15:37)
[2025-04-26 16:01] VITALS: TEMP 97.9
[2025-04-26 16:07] VITALS: O2SAT 99
[2025-04-26 16:09] VITALS: BP 146/71
== END 2025-04-26 15:47 | disposition home or self-care (01) ==
LOC: ER 11:19
PROC: 2W3BX1Z Immobilization of Left Upper Arm using Splint (ICD-10-PCS; principal; 2025-04-26)
DX: S52.022A Displaced fracture of olecranon process without intraarticular extension of left ulna, initial encounter for closed fracture (principal); W10.8XXA Fall (on) (from) other stairs and steps, initial encounter; Z23 Encounter for immunization
CPT/HCPCS: 96361; 93005; 85025; 80048; 36415; 84484; 70450; 72125; 71045; 73070; 73060; 90715; 96375; 96372; 96374; 99285; 29105; J2270; J1171